=== PATIENT | male | born 1990 | race Caucasian/White ===

== ENCOUNTER 2018-08-29 15:05 | Inpatient (IN) | payer OTHER ==
[2018-08-29 19:02] VITALS: BMI 27.9
--- NOTE | 2018-08-29 22:03 | HP ---
"CIWA Score - Admission Criteria [facility]ASAS Guidelines: Admission for Medically Managed Detox: Requires at least one of the followin. CIWA greater than 12 2. Seizures within the past 24 hours 3. Delirium tremens within the past 24 hours 4. Hallucinations within the past 24 hours 5. Acute intervention needed for co occurring medical disorder 6. Acute intervention needed for co occurring psychiatric disorder 7. Severe withdrawal that cannot be handled at a lower level of care (continued vomiting, continued diarrhea, abnormal vital signs) requiring intravenous medication and/or fluids 8. Admission ROS S - HPI Chief Complaint: Here for rehab from alcohol. Allergies/Adverse Reactions: Allergies Allergy/AdvReac Type Severity Reaction Status Date / Time No Known Allergies Allergy Verified 08/29/18 18:52 History of Present Illness: 28 yo presents to [facility] for rehab. U-Tox + for OPI/MTD [facility] detox @ [facility] for alcohol and heroin and competed on 08/18/18. . [facility] [place] [facility] instructed to come into rehab. Heroin use disorder since age 19. Last use was 4 days ago. [facility] was started today at [facility]. Given Methadone 30 mg today. Alcohol use since age 13. Was 15-20 bottles 16 oz beers daily. [facility] last alcohol use was 4 days ago. Nicotine use began at age 12. Smokes 1PPD States last overdose 2 weeks ago. [facility] was given Narcan and taken to hospital. [facility] has Narcan at home. Denies blackouts or seizures. PMHx: Asthma (last exacerbation 6 mths ago) MHHx: Depression. Denies thoughts of harming self or others. MH meds while incarcerated. Left fpc July 15, 2018. [facility] has current prescription for MH meds but no current prescriber. Search Terms: Dev Galvez, 1990 Search Date: 08/29/2018 10:02:51 PM The Drug Utilization Report below displays all of the controlled substance prescriptions, if any, that your patient has filled in the last twelve months. The information displayed on this report is compiled from pharmacy submissions to the Department, and accurately reflects the information as submitted by the pharmacies. This report was requested by: Bessie Lowe | Reference #: [id number] There are no results for the search terms that you entered. Exam Limitations: No Limitations - Ebola screening Have you traveled outside of the country in the last 21 days: No Have you had contact with anyone from an Ebola affected area: No Have you been sick,other than usual withdrawal symptoms: No (Denies recent exposure to measles ) Do you have a fever: No - Review of Systems Constitutional: Changes in sleep (Problems falling asleep - takes Trazodone) EENT: reports: No Symptoms Reported Respiratory: reports: No Symptoms reported Cardiac: reports: No Symptoms Reported GI: reports: No Symptoms Reported : reports: No Symptoms Reported Musculoskeletal: reports: No Symptoms Reported Integumentary: reports: No Symptoms Reported Neuro: reports: No Symptoms reported Endocrine: reports: No Symptoms Reported Hematology: reports: No Symptoms Reported Psychiatric: reports: Judgement Intact, Orientated x3, Depressed ( Denies thoughts of harming self or others.) Patient History - PPD History Previous Implant?: Yes Documented Results: Negative w/o proof Implanted On Prior [facility] Admission?: No PPD to be Administered?: No - Smoking Cessation Smoking history: Current every day smoker Have you smoked in the past 12 months: Yes Aproximately how many cigarettes per day: 20 Hx Chewing Tobacco Use: No Initiated information on smoking cessation: Yes 'Breaking Loose' booklet given: 08/29/18 - Substance & Tx. History Hx Alcohol Use: Yes Hx Substance Use: Yes Substance Use Type: Alcohol, Heroin Hx Substance Use Treatment: Yes (detox, Currently on MMTP) - Substances abused Heroin Substance route: Injection Frequency: Daily Amount used: 20 bags Age of first use: 19 Date of last use: 08/25/18 Alcohol Substance route: Oral Frequency: Daily Amount used: 15 bottles Age of first use: 13 Date of last use: 08/25/18 Admission Physical Exam S - Vital Signs Vital Signs: Vital Signs - 24 hr 08/29/18 08/29/18 18:40 21:22 Temperature 98.3 F 98.3 F Pulse Rate 72 72 Respiratory 18 18 Rate Blood Pressure 129/74 129/74 - Physical General Appearance: Yes: Nourished, Tremorous (Mild tremors of hands) HEENTM: Yes: EOMI (Jerking movement of eyes upon lateral gaze), Hearing grossly Normal, Normocephalic, TAYE, Pharynx Normal Respiratory: Yes: Lungs Clear, Normal Breath Sounds, No Respiratory Distress Neck: Yes: No masses,lesions,Nodules, Supple Breast: Yes: Breast Exam Deferred Cardiology: Yes: Regular Rhythm, Regular Rate (HR: 66), S1, S2 Abdominal: Yes: Non Tender, Flat, Soft, Increased Bowel Sounds Genitourinary: Yes: Within Normal Limits Back: Yes: Within Normal Limits Musculoskeletal: Yes: full range of Motion, Gait Steady Extremities: Yes: Normal Capillary Refill, Tremors (Mild tremors of hands) Neurological: Yes: flask maker II-XII NML intact (Jerking movement of eyes upon lateral gaze), Fully Oriented, Alert, Motor Strength 5/5, Normal Response Integumentary: Yes: Normal Color, Dry, Warm, Track Scott (Track scott (R) arm area. No increased warmth or erythema.) Lymphatic: Yes: Within Normal Limits - Diagnostic (1) Alcohol use disorder, moderate, in early remission Current Visit: Yes Status: Acute (2) Methadone maintenance therapy patient Current Visit: Yes Status: Acute Comment: Started in [facility] 08/29/18 prior to presenting for rehab. (3) Nystagmus Current Visit: Yes Status: Acute (4) History of asthma Current Visit: Yes Status: Chronic (5) Nicotine dependence, uncomplicated Current Visit: Yes Status: Chronic Qualifiers: Nicotine product type: cigarettes Qualified Code(s): F17.210 - Nicotine dependence, cigarettes, uncomplicated Cleared for Admission [facility] - Detox or Rehab Claeared for Rehab Admission: Yes Breathalyzer - Breathalyzer Breathalyzer: 0 Urine Drug Screen - Test Device Lot number: [id number] Expiration date: 05/01/20 - Control Is test valid?: Yes - Results Drug screen NEGATIVE: No Urine drug screen results: MOP-Opiates, MTD-Methadone Inpatient Rehab Admission - Rehab Decision to Admit Inpatient rehab admission?: Yes - Initial Determination Are CD services needed?: Yes Free of communicable disease: Yes Not in need of hospitalization: Yes - Rehab Admission Criteria Previous failed treatment: Yes Poor recovery environment: Yes Comorbidities: Yes Lacks judgement: No Patient is meeting Inpatient Rehab admission criteria:: Yes"
[2018-08-29] MEDS ORDERED: P-EPHED 60MG/TRIPROLIDI 2.5MG TABLET PO PRN (22:26)
[2018-08-29] MEDS ORDERED: MAGNESIUM CITRATE 300 ML BOTTLE PO PRN (22:26)
[2018-08-29] MEDS ORDERED: guaiFENesin 200 MG/10 ML 10 ML UNIT-DOSE CUPS PO PRN (22:26)
[2018-08-29] MEDS ORDERED: MAGNESIUM HYDROX 2400MG/30ML ORAL SUSPENSION 30 ML CUP PO PRN (22:26)
[2018-08-29] MEDS ORDERED: ACETAMINOPHEN 325 MG TABLET (FP) PO PRN (22:26)
[2018-08-29] MEDS ORDERED: NICOTINE POLACRILEX 2 MG GUM BC PRN (22:26)
[2018-08-29] MEDS ORDERED: MENTHOL/PHENOL 1 EACH UD MM PRN (22:26)
[2018-08-29] MEDS ORDERED: LOPERAMIDE HCL 2 MG CAPSULE PO PRN (22:26)
[2018-08-29] MEDS ORDERED: ALBUTEROL SO4 0.083% IH SOL 2.5 MG/3 ML VIAL.NEB. NEB PRN (22:31)
[2018-08-29] MEDS ORDERED: traZODone HCL 100 MG TABLET (FP) PO ONE (23:00)
[2018-08-29] MEDS: hydrOXYzine PAMOATE 50 MG CAPSULE (FP) PO PRN (23:36)
[2018-08-29] MEDS: MELATONIN 5 MG TABLETS PO PRN (23:36)
[2018-08-30] MEDS: PRENATAL VITAMINS W/ FOLIC ACID TABLET (FP) PO SCH (10:09)
[2018-08-30] MEDS: hydrOXYzine PAMOATE 50 MG CAPSULE (FP) PO PRN ×2 (10:09→21:39)
[2018-08-30] MEDS: NICOTINE 21 MG/24 HOURS TOPICAL PATCH TD SCH (10:09)
[2018-08-30 10:19] LABS: BILIRUBIN,TOTAL 0.3 mg/dL (0.2-1); BLOOD UREA NITROGEN 13.8 mg/dL (7-18); CALCIUM 9.5 mg/dL (8.5-10.1); POTASSIUM 4.3 mmol/L (3.5-5.1)
[2018-08-30 10:25] LABS: HEMOGLOBIN 14.5 GM/dL (11.7-16.9); MCH 29.6 pg (25.7-33.7); MCHC 32.9 g/dl (32.0-35.9); MEAN CELL VOLUME 90.1 fl (80-96); MEAN PLT VOLUME 8.6 fl (7.5-11.1); RBC 4.88 M/mm3 (4.00-5.60); RDW 13.6 % (11.9-15.9)
[2018-08-30] MEDS: METHADONE HCL 10 MG TABLET PO SCH (10:32)
[2018-08-30 11:16] LABS: PLATELET COUNT 318 K/MM3 (134-434)
--- NOTE | 2018-08-30 14:15 | CONSULT ---
[facility] Psychiatric Consult - Data Date of interview: 08/30/18 Admission source: [facility] Identifying data: First admission to [facility] and direct admission to [address] for this 28 y/o male (referred by correctional probation officer) seeking rehabilitative care for preservation of sobriety (heroin, alcohol dependence) + management of co-morbid conditions : MDD, Anxiety Disorder and insomnia. Patient is single, a father of one, homeless, unemployed and supported occasionally by relatives. Mr Galvez was released from longterm on after serving a 2 1/2 years sentence (charges not disclosed). Just completed detoxification (08/18/18) at [facility]. Substance Abuse History: Discussed with the patient in this interview. Mr Galvez admits to using heroin and alcohol. Recent history of heroin overdose. Details in current [facility] report as follows : Smoking history: Current every day smoker. Have you smoked in the past 12 months: Yes. Aproximately how many cigarettes per day: 20. Hx Chewing Tobacco Use: No. Initiated information on smoking cessation: Yes. 'Breaking Loose' booklet given: 08/29/18. - Substance & Tx. History. Hx Alcohol Use: Yes. Hx Substance Use: Yes. Substance Use Type : Alcohol, Heroin. Hx Substance Use Treatment: Yes (detox, Currently on MMTP). - Substances abused. Heroin. Substance route: Injection. Frequency: Daily. Amount used: 20 bags. Age of first use: 19. Date of last use: . Alcohol. Substance route: Oral. Frequency: Daily. Amount used: 15 bottles. Age of first use: 13. Date of last use: 08/25/18 Medical History: Remarkable for bronchial asthma. Patient endorses good general health. Psychiatric History: Patient denies history of psychiatric hospitalizations. He , however, reports receiving psychiatric care during his recent incarceration. In intermediate, the patient has been diagnosed with MDD and Anxiety Disorder. Mr Galvez was treated on a regimen of wellbutrin 200 mg/daily + trazodone 200 mg/ hs. Currently on methadone maintenance (30 mg/day). No prior history of OPD care. Patient endorses history of one suicide attempt, 5 years ago, via self- mutilation (wrist-cutting). Physical/Sexual Abuse/Trauma History: History of incarceration. Additional Comment: Urine drug screen results: MOP-Opiates, MTD-Methadone. Noted. Mental Status Exam - Mental Status Exam Alert and Oriented to: Time, Place, Person Cognitive Function: Good Patient Appearance: Well Groomed (covered with tattoos : extremities, neck) Mood: Hopeful, Euthymic Affect: Appropriate, Normal Range Patient Behavior: Appropriate, Cooperative Speech Pattern: Clear (speaks limited german; more comfortable in pashto), Appropriate Voice Loudness: Normal Thought Process: Goal Oriented Thought Disorder: Not Present Hallucinations: Denies Suicidal Ideation: Denies Homicidal Ideation: Denies Insight/Judgement: Poor Sleep: Poorly, Difficulty falling asleep Appetite: Good Muscle strength/Tone: Normal Gait/Station: Normal Psychiatric Findings - Problem List ([place] 1, 2,3) (1) Opioid dependence on agonist therapy Current Visit: Yes Status: Chronic (2) Alcohol use disorder, moderate, in early remission Current Visit: Yes Status: Chronic (3) Nicotine dependence, uncomplicated Current Visit: Yes Status: Chronic Qualifiers: Nicotine product type: cigarettes Qualified Code(s): F17.210 - Nicotine dependence, cigarettes, uncomplicated (4) Substance induced mood disorder Current Visit: Yes Status: Chronic (5) History of depression Current Visit: Yes Status: Chronic (6) Insomnia Current Visit: Yes Status: Chronic - Initial Treatment Plan Initial Treatment Plan: Psychoeducation. Sleep hygiene. Support given. Motivational counseling for maintenance of abstinence. AA/NA meetings. Groups. Psychotherapy (individual, cognitive, supportive). Resumed : wellbutrin 150 mg po daily + seroquel 100 mg (patient's specific request). Patient declines to take trazodone. Side effects/benefits discussed in this session.Made aware of risk of seizures, metabolic syndrome, abnormal involuntary movements and sedation. Mr Galvez is agreeable to this plan of care. Verbal consent granted to MD. Friedman.
[2018-08-30] MEDS: THIAMINE HCL 100 MG TABLET (FP) PO SCH (21:38)
[2018-08-30] MEDS: MELATONIN 5 MG TABLETS PO PRN (21:39)
[2018-08-31] MEDS: METHADONE HCL 10 MG TABLET PO SCH (06:18)
[2018-08-31] MEDS: NICOTINE 21 MG/24 HOURS TOPICAL PATCH TD SCH (10:07)
[2018-08-31] MEDS: PRENATAL VITAMINS W/ FOLIC ACID TABLET (FP) PO SCH (10:07)
[2018-08-31] MEDS: hydrOXYzine PAMOATE 50 MG CAPSULE (FP) PO PRN ×2 (10:07→21:23)
[2018-08-31 10:24] LABS: URINE APPEARANCE CLEAR; URINE BILIRUBIN NEGATIVE (NEGATIVE); URINE COLOR YELLOW; URINE GLUCOSE (UA) NEGATIVE (NEGATIVE); URINE KETONE NEGATIVE (NEGATIVE); URINE LEUK ESTERASE NEGATIVE (NEGATIVE); URINE NITRITE NEGATIVE (NEGATIVE); URINE PROTEIN NEGATIVE (NEGATIVE); URINE UROBILINOGEN 0.2 mg/dL (0.2-1.0)
[2018-08-31] MEDS: THIAMINE HCL 100 MG TABLET (FP) PO SCH (21:23)
[2018-08-31] MEDS: MELATONIN 5 MG TABLETS PO PRN (21:24)
--- NOTE | 2018-09-01 00:09 | EKG ---
Test Reason : Blood Pressure : / mmHG Vent. Rate : 051 BPM Atrial Rate : 051 BPM P-R Int : 144 ms QRS Dur : 102 ms QT Int : 406 ms P-R-T Axes : 039 053 034 degrees QTc Int : 374 ms SINUS BRADYCARDIA EARLY REPOLARIZATION OTHERWISE NORMAL ECG NO PREVIOUS ECGS AVAILABLE Confirmed by MD Rk, Darío ([id number]) on 09/01/2018 12:08:58 AM Referred By: Carlos Cabrera Confirmed By:Darío Beckman MD
[2018-09-01] MEDS: METHADONE HCL 10 MG TABLET PO SCH (06:20)
[2018-09-01] MEDS: PRENATAL VITAMINS W/ FOLIC ACID TABLET (FP) PO SCH (10:23)
[2018-09-01] MEDS: NICOTINE 21 MG/24 HOURS TOPICAL PATCH TD SCH (10:23)
[2018-09-01] MEDS: hydrOXYzine PAMOATE 50 MG CAPSULE (FP) PO PRN (10:24)
--- NOTE | 2018-09-01 15:13 | PN ---
[facility] Progress Note Note: PT WAS ADMITTED ON 08/29/18 AND REPORTS HE IS MANDATED BY PAROLE. PT REPORTS HE WAS STARTED ON METHADONE 30 MG PO AT [facility] ON SAME DAY HE ARRIVED HERE(08/29/18) FOR REHAB. TODAY PT IS C/O DISCOMFORT AND WANTS TO BE INCREASED OTHERWISE WILL SIGN OUT TO GO TO HIS CLINIC FOR INCREASE DOSE. NURSE FELICIA SALDIVAR CALLED [facility] TO INFORM PT'S REQUEST( SEE NURSE'S NOTES). THIS CANCER SPEC ALSO SPOKE TO THE MEDICAL PROVIDER, DR. ALCALA WHO OF [facility] WHO AGREED THAT PATIENT CAN BE MAINTAINED AT 40 MG DAILY IF NECESSARY WHILE IN REHAB UNTIL HE COMES BACK TO THE CLINIC FOR FURTHER ASSESSMENT. PT IS ALERT O X 3. OOB AMBULATING WITH STEADY GAIT AND PARTICIPATING IN GROUP ACTIVITIES WITH PEERS. Vital Signs - 24 hr 09/01/18 09/01/18 09/01/18 00:30 03:30 06:52 Temperature 97.7 F Pulse Rate 57 L Respiratory 18 18 18 Rate Blood Pressure 123/71 CARDIAC:S1 S2 SINUS BRADYCARDIA EKG(08/29/18):SINUS BRADYCARDIA EARLY POLARIZATION OTHERWISE NORMAL ECG NO PREVIOUS EKG ON FILE HERE. REPEAT EKG TODAY(09/01/18) :NORMAL SINUS RHYTHM NORMAL ECG A:CRAVINGS/IRRITABILITY PLAN: PER PT'S REQUEST AND DISCUSSION WITH DR. ALCALA AT [facility], PT MAY BE MAINTAINED ON METHADONE 40 MG PO DAILY. PT WILL FOLLOW UP WITH [facility] AFTER REHAB TREATMENT.
[2018-09-01] MEDS: QUEtiapine FUMARATE 100 MG TABLET (FP) PO SCH (21:31)
[2018-09-01] MEDS: THIAMINE HCL 100 MG TABLET (FP) PO SCH (21:31)
[2018-09-02] MEDS: METHADONE HCL 40 MG DISPERSABLE TABLET PO SCH (06:05)
[2018-09-02] MEDS: PRENATAL VITAMINS W/ FOLIC ACID TABLET (FP) PO SCH (10:18)
[2018-09-02] MEDS: NICOTINE 21 MG/24 HOURS TOPICAL PATCH TD SCH (10:18)
--- NOTE | 2018-09-02 13:47 | EKG ---
Test Reason : Blood Pressure : / mmHG Vent. Rate : 060 BPM Atrial Rate : 060 BPM P-R Int : 146 ms QRS Dur : 106 ms QT Int : 390 ms P-R-T Axes : -09 062 020 degrees QTc Int : 390 ms NORMAL SINUS RHYTHM NORMAL ECG WHEN COMPARED WITH ECG OF 29-AUG-2018 22:47, NO SIGNIFICANT CHANGE WAS FOUND Confirmed by MD LIONEL, ABRIL ([id number]) on 09/02/2018 1:47:22 PM Referred By: Carlos Cabrera Confirmed By:ABRIL FLOWERS MD
[2018-09-02] MEDS: QUEtiapine FUMARATE 100 MG TABLET (FP) PO SCH (21:32)
[2018-09-02] MEDS: THIAMINE HCL 100 MG TABLET (FP) PO SCH (21:32)
[2018-09-03] MEDS: METHADONE HCL 40 MG DISPERSABLE TABLET PO SCH (06:04)
[2018-09-03] MEDS: PRENATAL VITAMINS W/ FOLIC ACID TABLET (FP) PO SCH (10:09)
[2018-09-03] MEDS: NICOTINE 21 MG/24 HOURS TOPICAL PATCH TD SCH (10:09)
[2018-09-03] MEDS: MAG HYDROX/AL HYDROX/SIMETH 30 ML UNIT-DOSE CUP PO PRN (18:45)
[2018-09-03] MEDS: QUEtiapine FUMARATE 100 MG TABLET (FP) PO SCH (21:22)
[2018-09-03] MEDS: THIAMINE HCL 100 MG TABLET (FP) PO SCH (21:22)
[2018-09-04] MEDS: MAG HYDROX/AL HYDROX/SIMETH 30 ML UNIT-DOSE CUP PO PRN (05:36)
[2018-09-04] MEDS: METHADONE HCL 40 MG DISPERSABLE TABLET PO SCH (06:06)
[2018-09-04] MEDS: PRENATAL VITAMINS W/ FOLIC ACID TABLET (FP) PO SCH (09:59)
[2018-09-04] MEDS: NICOTINE 21 MG/24 HOURS TOPICAL PATCH TD SCH (10:00)
[2018-09-04] MEDS: THIAMINE HCL 100 MG TABLET (FP) PO SCH (21:12)
[2018-09-04] MEDS: QUEtiapine FUMARATE 100 MG TABLET (FP) PO SCH (21:12)
[2018-09-05] MEDS: METHADONE HCL 40 MG DISPERSABLE TABLET PO SCH (06:05)
[2018-09-05] MEDS ORDERED: HYDROCORTISONE 1% TOPICAL OINT 30 GM TUBE TP PRN (08:57)
--- NOTE | 2018-09-05 09:00 | PN ---
S Progress Note Note: Vital Signs Temperature 98.9 F 09/05/18 06:56 Pulse Rate 73 09/05/18 06:56 Respiratory Rate 18 09/05/18 06:56 Blood Pressure 126/68 09/05/18 06:56 O2 Sat by Pulse Oximetry (%) c/o of itch and rash on right hand Aox3 no distress skin intact, + right hand erythema pruritus TP hydrocortisone PRN BID continue to monitor
[2018-09-05] MEDS: PRENATAL VITAMINS W/ FOLIC ACID TABLET (FP) PO SCH (10:22)
[2018-09-05] MEDS: NICOTINE 21 MG/24 HOURS TOPICAL PATCH TD SCH (10:22)
[2018-09-05] MEDS: THIAMINE HCL 100 MG TABLET (FP) PO SCH (21:19)
[2018-09-05] MEDS: QUEtiapine FUMARATE 100 MG TABLET (FP) PO SCH (21:19)
[2018-09-06] MEDS: METHADONE HCL 40 MG DISPERSABLE TABLET PO SCH (06:08)
[2018-09-06] MEDS: PRENATAL VITAMINS W/ FOLIC ACID TABLET (FP) PO SCH (09:42)
[2018-09-06] MEDS: NICOTINE 21 MG/24 HOURS TOPICAL PATCH TD SCH (09:42)
[2018-09-06] MEDS: QUEtiapine FUMARATE 100 MG TABLET (FP) PO SCH (21:36)
[2018-09-06] MEDS: MELATONIN 5 MG TABLETS PO PRN (21:36)
[2018-09-06] MEDS: THIAMINE HCL 100 MG TABLET (FP) PO SCH (21:36)
[2018-09-07] MEDS: METHADONE HCL 40 MG DISPERSABLE TABLET PO SCH (06:06)
[2018-09-07] MEDS: PRENATAL VITAMINS W/ FOLIC ACID TABLET (FP) PO SCH (09:56)
[2018-09-07] MEDS: NICOTINE 21 MG/24 HOURS TOPICAL PATCH TD SCH (09:56)
[2018-09-07] MEDS: METHOCARBAMOL 500 MG TABLET PO PRN (09:58)
[2018-09-07] MEDS: IBUPROFEN 400 MG TABLET (FP) PO PRN (19:47)
[2018-09-07] MEDS: THIAMINE HCL 100 MG TABLET (FP) PO SCH (21:29)
[2018-09-07] MEDS: QUEtiapine FUMARATE 100 MG TABLET (FP) PO SCH (21:29)
[2018-09-07] MEDS: MELATONIN 5 MG TABLETS PO PRN (21:30)
[2018-09-08] MEDS: METHADONE HCL 40 MG DISPERSABLE TABLET PO SCH (06:12)
--- NOTE | 2018-09-08 09:51 | PN ---
S Progress Note (SOAP) Subjective: Pt c/o pain,swelling and redness to left lower eyelid x 2 days and pus forcefully popped out early this morning. Objective: 09/08/18 09:42 Vital Signs 09/08/18 07:06 Temperature 97.6 F Pulse Rate 65 Respiratory 18 Rate Blood Pressure 139/93 Left eye: redness and swelling to lower eyelid, slight pus seen. point of pus exit noted at inner eyelid. Assessment: 09/08/18 09:45 Abscess left eye periorbital cellulitis, left eye Plan: warm compress to left eye tid Doxycycline 500 mg po bid Bacitracin ophth ointment apply to left lower eyelid bid x 7 days. D/w pt: Avoid touching eyes but if you do, wash hands after touching eyes.
[2018-09-08] MEDS ORDERED: BACITRACIN 15 GM TUBE TOPICAL OINTMENT TP SCH (10:00)
[2018-09-08] MEDS: PRENATAL VITAMINS W/ FOLIC ACID TABLET (FP) PO SCH (10:35)
[2018-09-08] MEDS: hydrOXYzine PAMOATE 50 MG CAPSULE (FP) PO PRN (10:36)
[2018-09-08] MEDS: DOXYCYCLINE HYCLATE 100 MG TABLET PO SCH ×2 (10:37→17:58)
[2018-09-08] MEDS: NICOTINE 21 MG/24 HOURS TOPICAL PATCH TD SCH (10:37)
[2018-09-08] MEDS: BACITRACIN 3.5 GM OPTHALMIC OINT TUBE OS SCH ×2 (14:23→21:30)
[2018-09-08] MEDS: QUEtiapine FUMARATE 100 MG TABLET (FP) PO SCH (21:29)
[2018-09-08] MEDS: THIAMINE HCL 100 MG TABLET (FP) PO SCH (21:29)
[2018-09-09] MEDS: METHADONE HCL 40 MG DISPERSABLE TABLET PO SCH (06:06)
[2018-09-09] MEDS: hydrOXYzine PAMOATE 50 MG CAPSULE (FP) PO PRN ×2 (09:30→21:07)
[2018-09-09] MEDS: DOXYCYCLINE HYCLATE 100 MG TABLET PO SCH ×2 (09:30→17:48)
[2018-09-09] MEDS: NICOTINE 21 MG/24 HOURS TOPICAL PATCH TD SCH (09:30)
[2018-09-09] MEDS: PRENATAL VITAMINS W/ FOLIC ACID TABLET (FP) PO SCH (09:30)
[2018-09-09] MEDS: BACITRACIN 3.5 GM OPTHALMIC OINT TUBE OS SCH ×2 (09:31→21:07)
[2018-09-09] MEDS: THIAMINE HCL 100 MG TABLET (FP) PO SCH (21:06)
[2018-09-09] MEDS: QUEtiapine FUMARATE 100 MG TABLET (FP) PO SCH (21:07)
[2018-09-09] MEDS: MELATONIN 5 MG TABLETS PO PRN (21:07)
[2018-09-10] MEDS: METHADONE HCL 40 MG DISPERSABLE TABLET PO SCH (06:06)
[2018-09-10] MEDS: PRENATAL VITAMINS W/ FOLIC ACID TABLET (FP) PO SCH (10:18)
[2018-09-10] MEDS: hydrOXYzine PAMOATE 50 MG CAPSULE (FP) PO PRN ×2 (10:18→21:31)
[2018-09-10] MEDS: DOXYCYCLINE HYCLATE 100 MG TABLET PO SCH ×2 (10:18→17:00)
[2018-09-10] MEDS: BACITRACIN 3.5 GM OPTHALMIC OINT TUBE OS SCH ×2 (10:19→22:00)
[2018-09-10] MEDS: NICOTINE 21 MG/24 HOURS TOPICAL PATCH TD SCH (10:19)
--- NOTE | 2018-09-10 12:35 | PN ---
[facility] Progress Note Note: CXR result seen(see radiology report). Impression:No acute pathology.possible small granulomata on the left. correlation recommended. Plan:Copies of report and lab in patients discharge package to follow up with his primary care for further evaluation, if needed. Addendum;Left eye periorbital abscess is almost completely resolved.
[2018-09-10] MEDS: MELATONIN 5 MG TABLETS PO PRN (21:30)
[2018-09-10] MEDS: QUEtiapine FUMARATE 100 MG TABLET (FP) PO SCH (21:31)
[2018-09-10] MEDS: THIAMINE HCL 100 MG TABLET (FP) PO SCH (21:31)
[2018-09-11] MEDS: METHADONE HCL 40 MG DISPERSABLE TABLET PO SCH (06:12)
[2018-09-11] MEDS: NICOTINE 21 MG/24 HOURS TOPICAL PATCH TD SCH (10:25)
[2018-09-11] MEDS: PRENATAL VITAMINS W/ FOLIC ACID TABLET (FP) PO SCH (10:25)
[2018-09-11] MEDS: DOXYCYCLINE HYCLATE 100 MG TABLET PO SCH ×2 (10:25→18:11)
[2018-09-11] MEDS: BACITRACIN 3.5 GM OPTHALMIC OINT TUBE OS SCH ×2 (10:26→21:31)
[2018-09-11] MEDS: hydrOXYzine PAMOATE 50 MG CAPSULE (FP) PO PRN (10:26)
--- NOTE | 2018-09-11 15:11 | PN ---
Psychiatric Progress Note Vital Signs: Vital Signs Period Temp Pulse Resp BP Sys/Mary Pulse Ox Last 24 Hr 97.8 F 70 18 128/85 Date of Session: 09/11/18 Chief Complaint:: " i have never had a suicide attempt." HPI: Patient admitted to alcohol and cocaine dependence. ROS: Patient is coherent, alert and oriented X3. Current Medications: Active Medications Generic Name Dose Route Start Last Admin Trade Name Freq PRN Reason Stop Dose Admin Acetaminophen 650 mg 08/29/18 22:26 Tylenol - PO Q4H PRN FEVER Al Hydroxide/Mg Hydroxide 30 ml 08/29/18 22:26 09/04/18 05:36 Mylanta Oral Suspension - PO 30 ml Q6H PRN Administration DYSPEPSIA Albuterol Sulfate 1 amp 08/29/18 22:31 Ventolin 0.083% Nebulizer Soln - NEB Q4H PRN SHORT OF BREATH/WHEEZING Bacitracin 1 applic 09/08/18 11:00 09/11/18 10:26 Bacitracin Ophthalmic Oint - OS Not Given BID KIRSTIN Bupropion HCl 150 mg 09/01/18 14:00 09/11/18 10:25 Wellbutrin Xl - PO 150 mg DAILY KIRSTIN Administration Doxycycline Hyclate 100 mg 09/08/18 10:00 09/11/18 10:25 Vibratab - PO 09/15/18 09:59 100 mg BID@1000,1800 KIRSTIN Administration Eucalyptus/Menthol/Phenol/Sorbitol 1 each 08/29/18 22:26 Cepastat Lozenge - MM Q4H PRN SORE THROAT Guaifenesin 10 ml 08/29/18 22:26 Robitussin - PO Q6H PRN COUGH Hydrocortisone 1 applic 09/05/18 08:57 09/05/18 10:22 Hytone 1% Ointment - TP 1 applic BID PRN Administration FOR ITCHING Hydroxyzine Pamoate 50 mg 08/29/18 22:26 09/11/18 10:26 Vistaril - PO 50 mg Q4H PRN Administration AGITATION Ibuprofen 400 mg 08/29/18 22:26 09/07/18 19:47 Motrin - PO 400 mg Q6H PRN Administration Pain level 4-6 Loperamide HCl 4 mg 08/29/18 22:26 Imodium - PO Q6H PRN DIARRHEA Magnesium Citrate 300 ml 08/29/18 22:26 Citroma - PO Q48H PRN CONSTIPATION Magnesium Hydroxide 30 ml 08/29/18 22:26 Milk Of Magnesia - PO DAILY PRN CONSTIPATION Melatonin 5 mg 08/29/18 22:00 09/10/18 21:30 Melatonin PO 5 mg HS PRN Administration INSOMNIA Methadone HCl 40 mg 09/08/18 06:00 09/11/18 06:12 Dolophine - PO 09/15/18 05:59 40 mg DAILY@0600 KIRSTIN Administration Methocarbamol 500 mg 09/01/18 12:44 09/07/18 09:58 Robaxin - PO 500 mg TID PRN Administration MUSCLE SPASMS Nicotine 21 mg 08/30/18 10:00 09/11/18 10:25 Nicoderm Patch - TD 21 mg DAILY KIRSTIN Administration Nicotine Polacrilex 2 mg 08/29/18 22:26 Nicorette Gum - BC Q2H PRN NICOTINE REPLACEMENT RX Multivit/Folic Acid/Iron 1 tab 08/30/18 10:00 09/11/18 10:25 Vitamins ([facility]) - PO 1 tab DAILY KIRSTIN Administration Pseudoephedrine/Triprolidine 1 combo 08/29/18 22:26 Actifed - PO TID PRN NASAL CONGESTION Quetiapine Fumarate 100 mg 09/01/18 22:00 09/10/18 21:31 Seroquel - PO 100 mg HS KIRSTIN Administration Thiamine HCl 100 mg 08/30/18 22:00 09/10/18 21:31 Vitamin B1 - PO 100 mg HS KIRSTIN Administration Medication(s) Change(s): No. Current Side Effect: No Lab tests ordered: No Lab tests reviewed: Yes Provider note:: Supervisor Fur Floor Worker seen today as a follow up to his initial psychiatric consultation. Dr. Nicole note read and appreciated. Patient denies h/o psychiatric hospitalizations, outpatient care, and suicide attempt. He received psychiatric care while incarcerated and reports taking wellbutrin 200mg daily + Trazodone 150mg Hs. Patient denies h/o suicide attempt. He was made aware that the inpatient rehab he was going to be transferred to will not accept him because of his history of suicide attempt. As per Dr. Nicole's note, patient reported h/o one suicide attempt five years ago by cutting self. Patient denies the suicide attempt to real estate underwriter. States there was a language barrier as the psychiatrist was speaking thai to him and his thai is limited. Mr. Galvez is mainly pashto speaking. He reports saying yes to most of the questions because he wanted to end the conversation. Nursing staff informed. At present he reports stable mood and reports motivation to continue treatment at an inpatient it help desk technician rehab facility. Total face to face time:: 25 Mental Status Exam - Mental Status Exam Alert and Oriented to: Time, Place, Person Cognitive Function: Good Patient Appearance: Well Groomed Mood: Euthymic Affect: Appropriate Patient Behavior: Cooperative Speech Pattern: Appropriate Voice Loudness: Normal Thought Process: Goal Oriented Thought Disorder: Not Present Hallucinations: Denies Suicidal Ideation: Denies Homicidal Ideation: Denies Insight/Judgement: Poor Sleep: Fair Appetite: Fair Muscle strength/Tone: Normal Gait/Station: Normal Psychiatric Treatment Plan - Problem List (1) Alcohol use disorder, moderate, in early remission Current Visit: Yes (2) History of depression Current Visit: Yes (3) Insomnia Current Visit: Yes (4) Nicotine dependence, uncomplicated Current Visit: Yes Qualifiers: Nicotine product type: cigarettes Qualified Code(s): F17.210 - Nicotine dependence, cigarettes, uncomplicated (5) Opioid dependence on agonist therapy Current Visit: Yes
[2018-09-11] MEDS: QUEtiapine FUMARATE 100 MG TABLET (FP) PO SCH (21:30)
[2018-09-11] MEDS: THIAMINE HCL 100 MG TABLET (FP) PO SCH (21:30)
[2018-09-12] MEDS: METHADONE HCL 40 MG DISPERSABLE TABLET PO SCH (06:18)
[2018-09-12] MEDS: NICOTINE 21 MG/24 HOURS TOPICAL PATCH TD SCH (10:16)
[2018-09-12] MEDS: DOXYCYCLINE HYCLATE 100 MG TABLET PO SCH ×2 (10:16→17:25)
[2018-09-12] MEDS: hydrOXYzine PAMOATE 50 MG CAPSULE (FP) PO PRN (10:16)
[2018-09-12] MEDS: PRENATAL VITAMINS W/ FOLIC ACID TABLET (FP) PO SCH (10:16)
[2018-09-12] MEDS: BACITRACIN 3.5 GM OPTHALMIC OINT TUBE OS SCH ×2 (11:00→21:34)
[2018-09-12] MEDS: THIAMINE HCL 100 MG TABLET (FP) PO SCH (21:35)
[2018-09-12] MEDS: QUEtiapine FUMARATE 100 MG TABLET (FP) PO SCH (21:35)
[2018-09-13] MEDS: METHADONE HCL 40 MG DISPERSABLE TABLET PO SCH (06:04)
[2018-09-13] MEDS: PRENATAL VITAMINS W/ FOLIC ACID TABLET (FP) PO SCH (10:14)
[2018-09-13] MEDS: hydrOXYzine PAMOATE 50 MG CAPSULE (FP) PO PRN (10:14)
[2018-09-13] MEDS: BACITRACIN 3.5 GM OPTHALMIC OINT TUBE OS SCH ×2 (10:14→23:24)
[2018-09-13] MEDS: DOXYCYCLINE HYCLATE 100 MG TABLET PO SCH ×2 (10:14→17:46)
[2018-09-13] MEDS: NICOTINE 21 MG/24 HOURS TOPICAL PATCH TD SCH (10:15)
[2018-09-13] MEDS: QUEtiapine FUMARATE 100 MG TABLET (FP) PO SCH (21:55)
[2018-09-13] MEDS: THIAMINE HCL 100 MG TABLET (FP) PO SCH (21:55)
[2018-09-14] MEDS: METHADONE HCL 40 MG DISPERSABLE TABLET PO SCH (06:00)
[2018-09-14] MEDS: PRENATAL VITAMINS W/ FOLIC ACID TABLET (FP) PO SCH (10:28)
[2018-09-14] MEDS: BACITRACIN 3.5 GM OPTHALMIC OINT TUBE OS SCH ×2 (10:28→21:59)
[2018-09-14] MEDS: DOXYCYCLINE HYCLATE 100 MG TABLET PO SCH ×2 (10:29→18:35)
[2018-09-14] MEDS: NICOTINE 21 MG/24 HOURS TOPICAL PATCH TD SCH (10:31)
[2018-09-14] MEDS: MELATONIN 5 MG TABLETS PO PRN (21:35)
[2018-09-14] MEDS: QUEtiapine FUMARATE 100 MG TABLET (FP) PO SCH (21:35)
[2018-09-14] MEDS: THIAMINE HCL 100 MG TABLET (FP) PO SCH (21:59)
[2018-09-15] MEDS: METHADONE HCL 40 MG DISPERSABLE TABLET PO SCH (06:02)
[2018-09-15] MEDS: NICOTINE 21 MG/24 HOURS TOPICAL PATCH TD SCH (10:12)
[2018-09-15] MEDS: PRENATAL VITAMINS W/ FOLIC ACID TABLET (FP) PO SCH (10:12)
[2018-09-15] MEDS: BACITRACIN 3.5 GM OPTHALMIC OINT TUBE OS SCH ×2 (10:13→21:31)
[2018-09-15] MEDS: hydrOXYzine PAMOATE 50 MG CAPSULE (FP) PO PRN (10:15)
[2018-09-15] MEDS: THIAMINE HCL 100 MG TABLET (FP) PO SCH (21:31)
[2018-09-15] MEDS: QUEtiapine FUMARATE 100 MG TABLET (FP) PO SCH (21:31)
[2018-09-16] MEDS: METHADONE HCL 40 MG DISPERSABLE TABLET PO SCH (06:01)
[2018-09-16] MEDS: hydrOXYzine PAMOATE 50 MG CAPSULE (FP) PO PRN (10:04)
[2018-09-16] MEDS: NICOTINE 21 MG/24 HOURS TOPICAL PATCH TD SCH (10:04)
[2018-09-16] MEDS: PRENATAL VITAMINS W/ FOLIC ACID TABLET (FP) PO SCH (10:04)
[2018-09-16] MEDS: BACITRACIN 3.5 GM OPTHALMIC OINT TUBE OS SCH ×2 (10:05→21:35)
[2018-09-16] MEDS: QUEtiapine FUMARATE 100 MG TABLET (FP) PO SCH (21:34)
[2018-09-16] MEDS: THIAMINE HCL 100 MG TABLET (FP) PO SCH (21:34)
[2018-09-17] MEDS: METHADONE HCL 40 MG DISPERSABLE TABLET PO SCH (07:05)
[2018-09-17] MEDS: NICOTINE 21 MG/24 HOURS TOPICAL PATCH TD SCH (10:28)
[2018-09-17] MEDS: PRENATAL VITAMINS W/ FOLIC ACID TABLET (FP) PO SCH (10:28)
[2018-09-17] MEDS: BACITRACIN 3.5 GM OPTHALMIC OINT TUBE OS SCH ×2 (10:28→21:30)
[2018-09-17] MEDS: hydrOXYzine PAMOATE 50 MG CAPSULE (FP) PO PRN ×2 (10:28→21:30)
[2018-09-17] MEDS: QUEtiapine FUMARATE 100 MG TABLET (FP) PO SCH (21:30)
[2018-09-17] MEDS: THIAMINE HCL 100 MG TABLET (FP) PO SCH (21:30)
[2018-09-18] MEDS: METHADONE HCL 40 MG DISPERSABLE TABLET PO SCH (06:11)
[2018-09-18] MEDS: PRENATAL VITAMINS W/ FOLIC ACID TABLET (FP) PO SCH (10:28)
[2018-09-18] MEDS: NICOTINE 21 MG/24 HOURS TOPICAL PATCH TD SCH (10:29)
[2018-09-18] MEDS: hydrOXYzine PAMOATE 50 MG CAPSULE (FP) PO PRN ×2 (10:29→21:46)
[2018-09-18] MEDS: BACITRACIN 3.5 GM OPTHALMIC OINT TUBE OS SCH (10:29)
[2018-09-18] MEDS: THIAMINE HCL 100 MG TABLET (FP) PO SCH (21:46)
[2018-09-18] MEDS: QUEtiapine FUMARATE 100 MG TABLET (FP) PO SCH (21:46)
[2018-09-19] MEDS: METHADONE HCL 40 MG DISPERSABLE TABLET PO SCH (06:02)
[2018-09-19] MEDS: PRENATAL VITAMINS W/ FOLIC ACID TABLET (FP) PO SCH (10:29)
[2018-09-19] MEDS: NICOTINE 21 MG/24 HOURS TOPICAL PATCH TD SCH (10:29)
[2018-09-19] MEDS: hydrOXYzine PAMOATE 50 MG CAPSULE (FP) PO PRN ×2 (10:30→21:30)
[2018-09-19] MEDS: QUEtiapine FUMARATE 100 MG TABLET (FP) PO SCH (21:30)
[2018-09-19] MEDS: MELATONIN 5 MG TABLETS PO PRN (21:30)
[2018-09-19] MEDS: THIAMINE HCL 100 MG TABLET (FP) PO SCH (21:31)
[2018-09-20] MEDS: METHADONE HCL 40 MG DISPERSABLE TABLET PO SCH (06:14)
[2018-09-20] MEDS: PRENATAL VITAMINS W/ FOLIC ACID TABLET (FP) PO SCH (09:44)
[2018-09-20] MEDS: hydrOXYzine PAMOATE 50 MG CAPSULE (FP) PO PRN ×2 (09:45→21:30)
[2018-09-20] MEDS: NICOTINE 21 MG/24 HOURS TOPICAL PATCH TD SCH (09:45)
[2018-09-20] MEDS: THIAMINE HCL 100 MG TABLET (FP) PO SCH (21:30)
[2018-09-20] MEDS: MELATONIN 5 MG TABLETS PO PRN (21:30)
[2018-09-20] MEDS: QUEtiapine FUMARATE 100 MG TABLET (FP) PO SCH (21:30)
[2018-09-21] MEDS: METHADONE HCL 40 MG DISPERSABLE TABLET PO SCH (06:24)
[2018-09-21] MEDS: NICOTINE 21 MG/24 HOURS TOPICAL PATCH TD SCH (10:06)
[2018-09-21] MEDS: PRENATAL VITAMINS W/ FOLIC ACID TABLET (FP) PO SCH (10:07)
[2018-09-21] MEDS: hydrOXYzine PAMOATE 50 MG CAPSULE (FP) PO PRN ×2 (10:08→21:26)
[2018-09-21] MEDS: QUEtiapine FUMARATE 100 MG TABLET (FP) PO SCH (21:26)
[2018-09-21] MEDS: THIAMINE HCL 100 MG TABLET (FP) PO SCH (21:26)
[2018-09-21] MEDS: MELATONIN 5 MG TABLETS PO PRN (21:26)
[2018-09-22] MEDS: METHADONE HCL 40 MG DISPERSABLE TABLET PO SCH (06:04)
[2018-09-22] MEDS: PRENATAL VITAMINS W/ FOLIC ACID TABLET (FP) PO SCH (09:58)
[2018-09-22] MEDS: hydrOXYzine PAMOATE 50 MG CAPSULE (FP) PO PRN (09:58)
[2018-09-22] MEDS: IBUPROFEN 400 MG TABLET (FP) PO PRN (09:59)
[2018-09-22] MEDS: NICOTINE 21 MG/24 HOURS TOPICAL PATCH TD SCH (10:00)
--- NOTE | 2018-09-22 11:49 | PN ---
[facility] Progress Note (SOAP) Subjective: PT C/O LEFT SHOULDER BLADE AREA PAIN ON MOVEMENT OR DEEP BREATHING. Objective: 09/22/18 11:43 Vital Signs 09/22/18 07:15 Temperature 97.8 F Pulse Rate 80 Respiratory 18 Rate Blood Pressure 141/82 Laboratory Tests 08/30/18 08/30/18 08/30/18 07:50 07:50 07:50 WBC 8.0 RBC 4.88 Hgb 14.5 Hct 44.0 MCV 90.1 MCH 29.6 MCHC 32.9 RDW 13.6 Plt Count 318 MPV 8.6 Sodium 138 Potassium 4.3 Chloride 102 Carbon Dioxide 30 Anion Gap 6 L BUN 13.8 Creatinine 1.0 Est GFR (CKD-EPI)AfAm 118.19 Est GFR (CKD-EPI)NonAf 101.97 Random Glucose 94 Calcium 9.5 Total Bilirubin 0.3 AST 15 ALT 28 Alkaline Phosphatase 71 Total Protein 8.0 Albumin 4.0 Urine Color Urine Appearance Urine pH Ur Specific [place] Urine Protein Urine Glucose (UA) Urine Ketones Urine Blood Urine Nitrite Urine Bilirubin Urine Urobilinogen Ur Leukocyte Esterase RPR Titer Nonreactive TB (QFT) Incubation TB Test (QFT) Nil TB Test (QFT) Mitogen TB Test (QFT) Antigen TB Test (QFT) TB Positive Criteria 08/30/18 08/31/18 07:50 08:00 WBC RBC Hgb Hct MCV MCH MCHC RDW Plt Count MPV Sodium Potassium Chloride Carbon Dioxide Anion Gap BUN Creatinine Est GFR (CKD-EPI)AfAm Est GFR (CKD-EPI)NonAf Random Glucose Calcium Total Bilirubin AST ALT Alkaline Phosphatase Total Protein Albumin Urine Color Yellow Urine Appearance Clear Urine pH 6.0 Ur Specific [place] 1.021 Urine Protein Negative Urine Glucose (UA) Negative Urine Ketones Negative Urine Blood Negative Urine Nitrite Negative Urine Bilirubin Negative Urine Urobilinogen 0.2 Ur Leukocyte Esterase Negative RPR Titer TB (QFT) Incubation TB Test (QFT) Nil 0.06 TB Test (QFT) Mitogen >10.00 TB Test (QFT) Antigen 2.39 TB Test (QFT) Positive H TB Positive Criteria CARDIAC:S1 S2, NO MM LUNGS:CTA,OMER ABDOMEN:SOFT, +BS; NT,ND BACK:POINT TENDERNESS UNDER SHOULDER BLADE; ALL OTHER AREAS WITH NO PAIN EXPRESSION ON EXAM. EXTREMITIES:NO E/C/C; LEFT INNER ANKLE TENDERNESS ON PALPATION. Assessment: 09/22/18 11:47 MUSCLE STRAIN Plan: ROBAXIN 500 MG PO TID PRN MOTRIN 400 MG PO Q6H PRN INCREASE PO FLUIDS.
[2018-09-22] MEDS: QUEtiapine FUMARATE 100 MG TABLET (FP) PO SCH (21:33)
[2018-09-22] MEDS: THIAMINE HCL 100 MG TABLET (FP) PO SCH (21:33)
[2018-09-22] MEDS: MELATONIN 5 MG TABLETS PO PRN (21:33)
[2018-09-23] MEDS: METHADONE HCL 40 MG DISPERSABLE TABLET PO SCH (06:31)
[2018-09-23] MEDS: NICOTINE 21 MG/24 HOURS TOPICAL PATCH TD SCH (10:26)
[2018-09-23] MEDS: hydrOXYzine PAMOATE 50 MG CAPSULE (FP) PO PRN (10:26)
[2018-09-23] MEDS: PRENATAL VITAMINS W/ FOLIC ACID TABLET (FP) PO SCH (10:26)
[2018-09-23] MEDS: IBUPROFEN 400 MG TABLET (FP) PO PRN (10:26)
[2018-09-23] MEDS: METHOCARBAMOL 500 MG TABLET PO PRN ×2 (10:28→21:39)
[2018-09-23] MEDS: QUEtiapine FUMARATE 100 MG TABLET (FP) PO SCH (21:35)
[2018-09-23] MEDS: THIAMINE HCL 100 MG TABLET (FP) PO SCH (21:35)
[2018-09-23] MEDS: MELATONIN 5 MG TABLETS PO PRN (21:36)
[2018-09-24] MEDS: METHADONE HCL 40 MG DISPERSABLE TABLET PO SCH (06:17)
[2018-09-24] MEDS: IBUPROFEN 400 MG TABLET (FP) PO PRN (10:14)
[2018-09-24] MEDS: hydrOXYzine PAMOATE 50 MG CAPSULE (FP) PO PRN ×2 (10:14→21:27)
[2018-09-24] MEDS: PRENATAL VITAMINS W/ FOLIC ACID TABLET (FP) PO SCH (10:15)
[2018-09-24] MEDS: NICOTINE 21 MG/24 HOURS TOPICAL PATCH TD SCH (10:15)
[2018-09-24] MEDS: METHOCARBAMOL 500 MG TABLET PO PRN (10:16)
[2018-09-24] MEDS: THIAMINE HCL 100 MG TABLET (FP) PO SCH (21:27)
[2018-09-24] MEDS: QUEtiapine FUMARATE 100 MG TABLET (FP) PO SCH (21:27)
[2018-09-24] MEDS: MELATONIN 5 MG TABLETS PO PRN (21:27)
[2018-09-25] MEDS: METHADONE HCL 40 MG DISPERSABLE TABLET PO SCH (06:12)
--- NOTE | 2018-09-25 10:23 | PN ---
[facility] Progress Note (SOAP) Subjective: PT ADMITTED ON 08/29/18 TO REHAB AND SCHEDULED TO DISCHARGE ON 09/26/18. PT ATTENDED/PARTICIPATED IN GROUPS/INDIVIDUAL ACTIVITIES WHILE IN REHAB. PT MET WITH HIS COUNSELOR, MS SANDRA MCCONNELL AND HAS BEEN REFERRED TO [facility] ON [address] [place] FOR CD AFTERCARE. PT HAS BEEN REMINDED TO FOLLOW UP AT [facility] DISCUSSED WITH HIS METHADONE PROVIDER, DR. TOUSSAINT ON 09/01/18. PT DENBRENDA S/H/I. Objective: 09/25/18 10:21 Vital Signs 09/25/18 09/25/18 03:30 07:03 Temperature 97.9 F Pulse Rate 85 Respiratory 18 18 Rate Blood Pressure 143/83 Laboratory Tests 08/30/18 08/30/18 08/30/18 07:50 07:50 07:50 WBC 8.0 RBC 4.88 Hgb 14.5 Hct 44.0 MCV 90.1 MCH 29.6 MCHC 32.9 RDW 13.6 Plt Count 318 MPV 8.6 Sodium 138 Potassium 4.3 Chloride 102 Carbon Dioxide 30 Anion Gap 6 L BUN 13.8 Creatinine 1.0 Est GFR (CKD-EPI)AfAm 118.19 Est GFR (CKD-EPI)NonAf 101.97 Random Glucose 94 Calcium 9.5 Total Bilirubin 0.3 AST 15 ALT 28 Alkaline Phosphatase 71 Total Protein 8.0 Albumin 4.0 Urine Color Urine Appearance Urine pH Ur Specific Dorena Urine Protein Urine Glucose (UA) Urine Ketones Urine Blood Urine Nitrite Urine Bilirubin Urine Urobilinogen Ur Leukocyte Esterase RPR Titer Nonreactive TB (QFT) Incubation TB Test (QFT) Nil TB Test (QFT) Mitogen TB Test (QFT) Antigen TB Test (QFT) TB Positive Criteria 08/30/18 08/31/18 07:50 08:00 WBC RBC Hgb Hct MCV MCH MCHC RDW Plt Count MPV Sodium Potassium Chloride Carbon Dioxide Anion Gap BUN Creatinine Est GFR (CKD-EPI)AfAm Est GFR (CKD-EPI)NonAf Random Glucose Calcium Total Bilirubin AST ALT Alkaline Phosphatase Total Protein Albumin Urine Color Yellow Urine Appearance Clear Urine pH 6.0 Ur Specific Dorena 1.021 Urine Protein Negative Urine Glucose (UA) Negative Urine Ketones Negative Urine Blood Negative Urine Nitrite Negative Urine Bilirubin Negative Urine Urobilinogen 0.2 Ur Leukocyte Esterase Negative RPR Titer TB (QFT) Incubation TB Test (QFT) Nil 0.06 TB Test (QFT) Mitogen >10.00 TB Test (QFT) Antigen 2.39 TB Test (QFT) Positive H TB Positive Criteria GENERAL:WELL NOURISHED. SKIN:TATOOS ON BOTH LOWER LEGS HEART:S1 S2; RRR; NO MM/R LUNGS:CTA,OMER. ABDOMEN:SOFT,+BS ALL QUAD; NT/ND. EXTREMITIES:NO E/C/C Assessment: 09/25/18 10:22 [facility] Inpatient Services Medical - Diagnosis (1) Methadone maintenance therapy patient Current Visit: Yes Status: Chronic (2) History of asthma Current Visit: Yes Status: Chronic (3) Nicotine dependence, uncomplicated Qualifiers: Nicotine product type: cigarettes Qualified Code(s): F17.210 - Nicotine dependence, cigarettes, uncomplicated Current Visit: Yes Status: Chronic (4) Alcohol use disorder, moderate, in early remission Current Visit: Yes Status: Chronic Initialized on 09/26/18 11:37 - END OF NOTE MEDICALLY STABLE Plan: PT MAY DISCHARGE TOMORROW FOLLOW UP WITH CD AFTERCARE RECOMMENDATION. PT WILL BE FOLLOWING UP WITH HIS MMTP TO CONTINUE METHADONE DISCUSSED WITH HIS CLINIC ON
[2018-09-25] MEDS: PRENATAL VITAMINS W/ FOLIC ACID TABLET (FP) PO SCH (10:39)
[2018-09-25] MEDS: NICOTINE 21 MG/24 HOURS TOPICAL PATCH TD SCH (10:39)
[2018-09-25] MEDS: METHOCARBAMOL 500 MG TABLET PO PRN (10:40)
[2018-09-25] MEDS: hydrOXYzine PAMOATE 50 MG CAPSULE (FP) PO PRN ×2 (10:41→21:34)
--- NOTE | 2018-09-25 15:15 | PN ---
[facility] Progress Note Note: Patient is scheduled for discharge tomorrow. Scripts for 30 days supply of medications(Zyprexa 20 mg/hs, Remeron 15 mg/hs) will be electronically transmitted to [facility] at [address] [place] [address]
--- NOTE | 2018-09-25 15:21 | PN ---
[facility] Progress Note Note: Patient is scheduled for discharge tomorrow. Scripts for 30 days supply of medications(Wellbutrin XL 150 mg/day, Seroquel 100 mg/hs) will be electronically transmitted to [facility] at [id number] [place] [id number]
[2018-09-25] MEDS: THIAMINE HCL 100 MG TABLET (FP) PO SCH (21:33)
[2018-09-25] MEDS: QUEtiapine FUMARATE 100 MG TABLET (FP) PO SCH (21:33)
[2018-09-25] MEDS: MELATONIN 5 MG TABLETS PO PRN (21:34)
[2018-09-26] MEDS: METHADONE HCL 40 MG DISPERSABLE TABLET PO SCH (06:17)
[2018-09-26 07:00] VITALS: BP 149/92; PULSE 84; TEMP 98.2
[2018-09-26] MEDS: PRENATAL VITAMINS W/ FOLIC ACID TABLET (FP) PO SCH (10:25)
[2018-09-26] MEDS: hydrOXYzine PAMOATE 50 MG CAPSULE (FP) PO PRN (10:26)
[2018-09-26] MEDS: METHOCARBAMOL 500 MG TABLET PO PRN (10:26)
[2018-09-26] MEDS: IBUPROFEN 400 MG TABLET (FP) PO PRN (10:27)
[2018-09-26] MEDS: NICOTINE 21 MG/24 HOURS TOPICAL PATCH TD SCH (10:34)
== END 2018-09-26 12:26 | disposition home or self-care (01) | DRG 772 ==
LOC: YASAS 15:05 → Y5N 22:51
PROVIDERS: ADMIT Neuromusculoskeletal Medicine & OMM; ATTEND Neuromusculoskeletal Medicine & OMM
PROC: HZ42ZZZ Group Counseling for Substance Abuse Treatment, Cognitive-Behavioral (ICD-10-PCS; principal; 2018-08-29)
DX: F10.20 Alcohol dependence, uncomplicated (principal); F11.20 Opioid dependence, uncomplicated; F17.210 Nicotine dependence, cigarettes, uncomplicated; F19.24 Other psychoactive substance dependence with psychoactive substance-induced mood disorder; G47.00 Insomnia, unspecified; J45.909 Unspecified asthma, uncomplicated; H55.00 Unspecified nystagmus; M25.512 Pain in left shoulder; M25.572 Pain in left ankle and joints of left foot; H02.845 Edema of left lower eyelid; H05.012 Cellulitis of left orbit; Z86.59 Personal history of other mental and behavioral disorders
CPT/HCPCS: 36415; 71046-TC-FY; 80053; 81003; 85027; 86480; 86593; 93005; 93010

== ENCOUNTER 2019-02-28 11:53 | Inpatient (IN) | payer OTHER ==
[2019-02-28 13:24] VITALS: BMI 27.7
--- NOTE | 2019-02-28 14:27 | HP ---
COWS - Scale Resting Pulse: 0= MD 80 or Below Sweatin=Flushed/Facial Moisture Restless Observation: 1= Difficult to Sit Still Pupil Size: 2= Moderately Dilated (Pupils = 4 mm) Bone or Joint Aches: 1= Mild Discomfort Runny Nose/ Eye Tearin= Nasal Congestion GI Upset > 30mins: 2= Nausea/Diarrhea (Nausea w/ one episode diarrhea today) Tremor Observation: 4= Gross Tremor/Twitching Yawning Observation: 0= None Anxiety or Irritability: 1=Feels Anxious/Irritable Goose Flesh Skin: 0=Smooth Skin COWS Score: 14 CIWA Score Nausea/Vomitin-Mild Nausea/No Vomiting Muscle Tremors: 4-Moderate,w/Arms Extend Anxiety: 3 Agitation: 2 Paroxysmal Sweats: 3 Orientation: 0-Oriented Tacttile Disturbances: 0-None Auditory Disturbances: 0-None Visual Disturbances: 0-None Headache: 1-Very Mild (Frontal achy headache) CIWA-Ar Total Score: 14 - Admission Criteria OASAS Guidelines: Admission for Medically Managed Detox: Requires at least one of the followin. CIWA greater than 12 2. Seizures within the past 24 hours 3. Delirium tremens within the past 24 hours 4. Hallucinations within the past 24 hours 5. Acute intervention needed for co occurring medical disorder 6. Acute intervention needed for co occurring psychiatric disorder 7. Severe withdrawal that cannot be handled at a lower level of care (continued vomiting, continued diarrhea, abnormal vital signs) requiring intravenous medication and/or fluids 8. Patient presents the following: CIWA greater than 12 Admission Criteria Met: Admission criteria met Admitting History and Physical - Smoking History Smoking history: Current every day smoker Have you smoked in the past 12 months: Yes Aproximately how many cigarettes per day: 20 - Alcohol/Substance Use Hx Alcohol Use: Yes Admission ROS BHS - HPI Chief Complaint: Here for myself - I don't want to use drugs anymore" Allergies/Adverse Reactions: Allergies Allergy/AdvReac Type Severity Reaction Status Date / Time No Known Allergies Allergy Verified 08/29/18 18:52 History of Present Illness: 29 yo presents to [facility] seeking detox. Last here in rehab in September 2018. UTox: + SALLY/OPI/FEN/MTD/BZO MARVIN: 0.0 Denies blackouts or seizures. Hx: Overdoses - last 1 month ago - was given Narcan by EMS and taken to hospital. has no Narcan at home. Patient CIWA score is enough to admit for alcohol withdrawal but, based on the reported usage, symptoms may also be as a result of opioid withdrawal. Will place the patient on a short alcohol detox. Will give the patient methadone 30 mg PO x 2 days and then have patients' program contacted on Saturday to verify methadone dose. Patient states he wants to return to his methadone program when discharged. Heroin use disorder since age 19. was started on PROMESA - MMTP. States current dose is Methadone 50 mg daily. Last had methadone 7 days ago. States uses 1 bundle Heroin daily - IV. Last used heroin at 6 am today. Alcohol use since age 13. States currently drinks 4 - 12 oz beers daily. States last alcohol use was yesterday in a.m. Cocaine use since age 19. Currently uses 4-5 bags/day - IV. Nicotine use began at age 12. Smokes 1PPD. PMHx: Asthma (Last exacerbation 1 month ago - mild) MHHx: Depression.Insomnia. States compliant w/ Wellbutrin and Seroquel. States last took both 1 day ago. Denies thoughts of harming self or others. SHx. Lives w/ mother. Unemployed. On parole. Search Terms: Dev Galvez, 1990 Search Date: 02/28/2019 02:32:45 PM The Drug Utilization Report below displays all of the controlled substance prescriptions, if any, that your patient has filled in the last twelve months. The information displayed on this report is compiled from pharmacy submissions to the Department, and accurately reflects the information as submitted by the pharmacies. This report was requested by: Bessie Lowe | Reference #: [id number] There are no results for the search terms that you entered. Exam Limitations: No Limitations - Ebola screening Have you traveled outside of the country in the last 21 days: No (N) Have you had contact with anyone from an Ebola affected area: No Have you been sick,other than usual withdrawal symptoms: No Do you have a fever: No - Review of Systems Constitutional: Changes in sleep (States takes Seroqul for sleep.) EENT: reports: Nose Congestion Respiratory: reports: No Symptoms reported Cardiac: reports: No Symptoms Reported GI: reports: Diarrhea (watery diarrhea x 1 today - yellowish), Nausea : reports: No Symptoms Reported Musculoskeletal: reports: Back Pain (mild back pain r/t withdrawal) Integumentary: reports: No Symptoms Reported Neuro: reports: Headache (Frontal achy headache "5"), Tremors Endocrine: reports: No Symptoms Reported Hematology: reports: No Symptoms Reported Psychiatric: reports: Judgement Intact, Orientated x3, Anxious Patient History - Patient Medical History Hx Asthma: Yes Hx Chronic Obstructive Pulmonary Disease (COPD): No Hx Cardiac Disorders: No Hx Hypertension: No Hx Seizures: No Hx Diabetes: No Hx Gastrointestinal Disorders: No Hx Genitourinary Disorders: No Hx Sexually Transmitted Disorders: No Hx Renal Disease (ESRD): No Hx Depression: Yes - Patient Surgical History Past Surgical History: No - PPD History Previous Implant?: Yes (TB Gold/Quantiferon) Documented Results: Negative w/proof Implanted On Prior R Admission?: Yes Date: 08/30/18 (TB Gold/Quantiferon) Results: Neg PPD to be Administered?: No - Smoking Cessation Smoking history: Current every day smoker Have you smoked in the past 12 months: Yes Aproximately how many cigarettes per day: 20 Hx Chewing Tobacco Use: No Initiated information on smoking cessation: Yes 'Breaking Loose' booklet given: 02/28/19 - Substance & Tx. History Hx Alcohol Use: Yes Hx Substance Use: Yes Substance Use Type: Alcohol, Cocaine, Heroin Hx Substance Use Treatment: Yes (detox, rehab, MMTP) - Substances abused Heroin Substance route: Injection Frequency: Daily Amount used: 5 bags Age of first use: 19 Date of last use: 02/28/19 Alcohol Substance route: Oral Frequency: Daily Amount used: 4 beers Age of first use: 13 Date of last use: 02/27/19 Cocaine Substance route: Injection Frequency: Daily Amount used: 4 bags Age of first use: 19 Date of last use: 02/28/19 Admission Physical Exam BHS - Vital Signs Vital Signs: Vital Signs - 24 hr 02/28/19 13:13 Temperature 97.1 F L Pulse Rate 80 Respiratory 19 Rate Blood Pressure 142/90 - Physical General Appearance: Yes: Mild Distress, Tremorous, Sweating (Increased facial moisture), Anxious HEENTM: Yes: EOMI (Slight nystagmus on (L) lateral gaze), Hearing grossly Normal , Normocephalic, Normal Voice, TAYE (Pupils = 4 mm), Pharynx Normal, Nasal Congestion Respiratory: Yes: Lungs Clear (Pulse Ox =98%), Normal Breath Sounds, No Respiratory Distress Neck: Yes: No masses,lesions,Nodules, Supple Breast: Yes: Breast Exam Deferred Cardiology: Yes: Regular Rhythm, Regular Rate (HR: 66), S1, S2 Abdominal: Yes: Non Tender, Flat, Soft, Increased Bowel Sounds Genitourinary: Yes: Within Normal Limits Back: Yes: Normal Inspection Musculoskeletal: Yes: full range of Motion Extremities: Yes: Tremors (Gross tremors w/ arms extended), Swelling ((L) ankle and foot swelling. Tenderness (L) outer malleolus. FROM ankle w/o crepitus. FWB. Pedal pulses +.) Neurological: Yes: gasoline engine assembler II-XII NML intact (Slight nystagmus on (L) lateral gaze) , Fully Oriented, Alert, Motor Strength 5/5, Normal Mood/Affect Integumentary: Yes: Normal Color, Warm, Moist (Increased facial moisture), Track Abel (Both forearms. No increased warmth or induration at injection sites.) Lymphatic: Yes: Within Normal Limits - Diagnostic (1) Alcohol dependence with withdrawal, uncomplicated Current Visit: Yes Status: Acute (2) Nicotine dependence, uncomplicated Current Visit: No Status: Chronic Qualifiers: Nicotine product type: cigarettes Qualified Code(s): F17.210 - Nicotine dependence, cigarettes, uncomplicated (3) Opioid dependence on agonist therapy Current Visit: Yes Status: Chronic Comment: On MMTP. Missed 1 week. Needs MMTP called for dose verification. (4) History of asthma Current Visit: Yes Status: Chronic (5) Cocaine dependence, uncomplicated Current Visit: Yes Status: Chronic (6) Nystagmus Current Visit: Yes Status: Chronic Cleared for Admission S - Detox or Rehab [facility] Level of Care: Medically Managed Detox Regimen/Protocol: Librium Claeared for Rehab Admission: No Breathalyzer - Breathalyzer Breathalyzer: 0 Urine Drug Screen - Test Device Lot number: [id number] Expiration date: 10/01/20 - Control Is test valid?: Yes - Results Drug screen NEGATIVE: No Urine drug screen results: SALLY-Cocaine, FEN-Fentanyl, MOP-Opiates, MTD-Methadone , BZO-Benzodiazepines Inpatient Rehab Admission - Rehab Decision to Admit Inpatient rehab admission?: No
[2019-02-28] MEDS ORDERED: MAGNESIUM CITRATE 300 ML BOTTLE PO PRN (15:28)
[2019-02-28] MEDS ORDERED: IBUPROFEN 400 MG TABLET (FP) PO PRN (15:28)
[2019-02-28] MEDS ORDERED: MELATONIN 5 MG TABLETS PO PRN (15:28)
[2019-02-28] MEDS ORDERED: MAGNESIUM HYDROX 2400MG/30ML ORAL SUSPENSION 30 ML CUP PO PRN (15:28)
[2019-02-28] MEDS ORDERED: chlordiazePOXIDE 5 MG CAPSULE PO PRN (15:28)
[2019-02-28] MEDS ORDERED: MENTHOL/PHENOL 1 EACH UD MM PRN (15:28)
[2019-02-28] MEDS ORDERED: BISMUTH SUBSALICYLATE 524 MG/30 ML UD PO PRN (15:28)
[2019-02-28] MEDS ORDERED: ACETAMINOPHEN 325 MG TABLET (FP) PO PRN ×2 (15:28)
[2019-02-28] MEDS ORDERED: MAG HYDROX/AL HYDROX/SIMETH 30 ML UNIT-DOSE CUP PO PRN (15:28)
[2019-02-28] MEDS ORDERED: NICOTINE POLACRILEX 2 MG GUM BUC PRN (15:28)
[2019-02-28] MEDS ORDERED: METHADONE HCL 10 MG TABLET PO ONE (15:39)
[2019-02-28] MEDS ORDERED: QUEtiapine FUMARATE 50 MG TABLET PO SCH (22:00)
[2019-02-28] MEDS: chlordiazePOXIDE 5 MG CAPSULE PO SCH (22:19)
[2019-02-28] MEDS: THIAMINE HCL 100 MG TABLET (FP) PO SCH (22:19)
[2019-03-01] MEDS: chlordiazePOXIDE 5 MG CAPSULE PO SCH ×3 (05:51→22:01)
[2019-03-01 09:25] LABS: HEMATOCRIT 38.1 % (35.4-49); HEMOGLOBIN 12.7 GM/dL (11.7-16.9); MCH 29.6 pg (25.7-33.7); MCHC 33.2 g/dl (32.0-35.9); MEAN CELL VOLUME 89.2 fl (80-96); MEAN PLT VOLUME 8.5 fl (7.5-11.1); PLATELET COUNT 245 K/MM3 (134-434); RBC 4.28 M/mm3 (4.00-5.60); RDW 13.1 % (11.9-15.9); WHITE BLOOD COUNT 6.2 K/mm3 (4.0-10.0)
[2019-03-01 09:34] LABS: ALBUMIN 3.5 g/dl (3.4-5.0); BILIRUBIN,TOTAL 0.3 mg/dL (0.2-1); BLOOD UREA NITROGEN 12.1 mg/dL (7-18); CALCIUM 9.2 mg/dL (8.5-10.1); CREATININE 0.8 mg/dL (0.55-1.3); POTASSIUM 3.9 mmol/L (3.5-5.1)
[2019-03-01] MEDS: PRENATAL VITAMINS W/ FOLIC ACID TABLET (FP) PO SCH (09:40)
[2019-03-01] MEDS: NICOTINE 21 MG/24 HOURS TOPICAL PATCH TD SCH (09:58)
[2019-03-01] MEDS ORDERED: METHADONE HCL 10 MG TABLET PO ONE (10:00)
--- NOTE | 2019-03-01 10:13 | CONSULT ---
[facility] Psychiatric Consult - Data Date of interview: 03/01/19 Admission source: [facility] Identifying data: Patient is a 29 year old Gu[place]ian male, father of three, unemployed, homeless, and is not currently receiving financial assistance. This is one of multiple admissions for patient. Patient admitted to for alcohol, cocaine and opiate dependence. Substance Abuse History: - Smoking Cessation. Smoking history: Current every day smoker. Have you smoked in the past 12 months: Yes. Aproximately how many cigarettes per day: 20. Hx Chewing Tobacco Use: No. Initiated information on smoking cessation: Yes. 'Breaking Loose' booklet given: 02/28/19. - Substance & Tx. History. Hx Alcohol Use: Yes. Hx Substance Use: Yes. Substance Use Type : Alcohol, Cocaine, Heroin. Hx Substance Use Treatment: Yes (detox, rehab, MMTP ). - Substances abused. Heroin. Substance route: Injection. Frequency: Daily. Amount used: 5 bags. Age of first use: 19. Date of last use: . Alcohol. Substance route: Oral. Frequency: Daily. Amount used: 4 beers. Age of first use: 13. Date of last use: 02/27/19. Cocaine. Substance route: Injection. Frequency: Daily. Amount used: 4 bags. Age of first use: 19. Date of last use: 02/28/19 Medical History: Remarkable for bronchial asthma. Patient endorses good general health Psychiatric History: Mr. Galvez's first psychiatric contact was as an teenager due to mood instability although is unable to recall medications prescribed. He denies history of psychiatric hospitalizations. He reports two admissions to the [facility] most recently two weeks ago at [facility] after reporting suicidal thoughts. States that he is currently receiving outpatient psychiatric care at [facility] and is prescribed wellbutrin 300mg + Seroquel 300mg HS. Diagnosis of MDD + Bipolar disorder + Anxiety disorder. States that his medications were increased after discharge from rehab in September in which he was receiving wellbutrin 150mg XL + seroquel 100mg HS. Patient reports history of one suicide attempt by self mutilation at 15 years of age. At present patient reports feeling sad and is experiencing difficulty sleeping. Physical/Sexual Abuse/Trauma History: denies. Mental Status Exam - Mental Status Exam Alert and Oriented to: Time, Place, Person Cognitive Function: Good Patient Appearance: Well Groomed Mood: Withdrawn Affect: Mood Congruent Patient Behavior: Fatigued, Cooperative Speech Pattern: Appropriate Voice Loudness: Normal (Khmer speaking) Thought Process: Goal Oriented Thought Disorder: Not Present Hallucinations: Denies Suicidal Ideation: Denies Homicidal Ideation: Denies Insight/Judgement: Poor Sleep: Poorly Appetite: Fair Muscle strength/Tone: Normal Gait/Station: Normal Psychiatric Findings - Problem List ([place] 1, 2,3) (1) Mood disorder Current Visit: Yes Status: Chronic (2) Alcohol dependence with withdrawal, uncomplicated Current Visit: Yes Status: Acute (3) Cocaine dependence, uncomplicated Current Visit: Yes Status: Chronic (4) Opioid dependence on agonist therapy Current Visit: Yes Status: Chronic Comment: On MMTP. Missed 1 week. Needs MMTP called for dose verification. (5) Nicotine dependence, uncomplicated Current Visit: Yes Status: Chronic Qualifiers: Nicotine product type: cigarettes Qualified Code(s): F17.210 - Nicotine dependence, cigarettes, uncomplicated (6) Substance induced mood disorder Current Visit: Yes Status: Chronic - Initial Treatment Plan Initial Treatment Plan: Psychoeducation provided. Detoxification in progress. Will order Wellbutrin 300mg XL + Seroquel 200mg HS. Benefits and side effects discussed. Verbal consent given.
--- NOTE | 2019-03-01 13:10 | PN ---
S CIWA - CIWA Score Nausea/Vomitin-Mild Nausea/No Vomiting Muscle Tremors: 4-Moderate,w/Arms Extend Anxiety: 3 Agitation: 2 Paroxysmal Sweats: 1-Minimal Palms Moist Orientation: 0-Oriented Tacttile Disturbances: 0-None Auditory Disturbances: 0-None Visual Disturbances: 0-None Headache: 2-Mild CIWA-Ar Total Score: 13 S Progress Note (SOAP) Subjective: 29 years old male admitted on 02/28/19 for alcohol withdrawal sx management treating with librium detox regimen positive opioid urine tox upon admission received methadone 30mg po today and yesterday methadone 50mg po daily will be verified tomorrow Objective: 03/01/19 13:10 Vital Signs Temperature 98.3 F 03/01/19 09:06 Pulse Rate 62 03/01/19 09:06 Respiratory Rate 18 03/01/19 09:06 Blood Pressure 124/71 03/01/19 09:06 O2 Sat by Pulse Oximetry (%) Laboratory Last Values WBC 6.2 K/mm3 (4.0-10.0) 03/01/19 07:20 RBC 4.28 M/mm3 (4.00-5.60) 03/01/19 07:20 Hgb 12.7 GM/dL (11.7-16.9) 03/01/19 07:20 Hct 38.1 % (35.4-49) 03/01/19 07:20 MCV 89.2 fl (80-96) 03/01/19 07:20 MCH 29.6 pg (25.7-33.7) 03/01/19 07:20 MCHC 33.2 g/dl (32.0-35.9) 03/01/19 07:20 RDW 13.1 % (11.9-15.9) 03/01/19 07:20 Plt Count 245 K/MM3 (134-434) D 03/01/19 07:20 MPV 8.5 fl (7.5-11.1) 03/01/19 07:20 Sodium 141 mmol/L (136-145) 03/01/19 07:20 Potassium 3.9 mmol/L (3.5-5.1) 03/01/19 07:20 Chloride 106 mmol/L (98-107) 03/01/19 07:20 Carbon Dioxide 31 mmol/L (21-32) 03/01/19 07:20 Anion Gap 4 MMOL/L (8-16) L 03/01/19 07:20 BUN 12.1 mg/dL (7-18) 03/01/19 07:20 Creatinine 0.8 mg/dL (0.55-1.3) 03/01/19 07:20 Est GFR (CKD-EPI)AfAm 139.91 03/01/19 07:20 Est GFR (CKD-EPI)NonAf 120.72 03/01/19 07:20 Random Glucose 106 mg/dL (74-106) 03/01/19 07:20 Calcium 9.2 mg/dL (8.5-10.1) 03/01/19 07:20 Total Bilirubin 0.3 mg/dL (0.2-1) 03/01/19 07:20 AST 13 U/L (15-37) L 03/01/19 07:20 ALT 22 U/L (13-61) 03/01/19 07:20 Alkaline Phosphatase 58 U/L (45-117) 03/01/19 07:20 Total Protein 7.0 g/dl (6.4-8.2) 03/01/19 07:20 Albumin 3.5 g/dl (3.4-5.0) 03/01/19 07:20 RPR Titer Nonreactive (NONREACTIVE) 03/01/19 07:20 lab noted Assessment: 03/01/19 13:10 alcohol withdrawal Plan: librium regimen
[2019-03-01] MEDS: QUEtiapine FUMARATE 100 MG TABLET (FP) PO SCH (22:01)
[2019-03-01] MEDS: THIAMINE HCL 100 MG TABLET (FP) PO SCH (22:02)
[2019-03-02] MEDS: chlordiazePOXIDE 5 MG CAPSULE PO SCH ×3 (05:21→22:13)
[2019-03-02] MEDS ORDERED: METHADONE HCL 40 MG DISPERSABLE TABLET PO ONE (10:00)
[2019-03-02] MEDS: PRENATAL VITAMINS W/ FOLIC ACID TABLET (FP) PO SCH (10:03)
[2019-03-02] MEDS: NICOTINE 21 MG/24 HOURS TOPICAL PATCH TD SCH (10:03)
--- NOTE | 2019-03-02 11:25 | PN ---
S CIWA - CIWA Score Nausea/Vomitin-Mild Nausea/No Vomiting Muscle Tremors: 2 Anxiety: 2 Agitation: 1-Slight > Activity Paroxysmal Sweats: 2 Orientation: 0-Oriented Tacttile Disturbances: 0-None Auditory Disturbances: 0-None Visual Disturbances: 0-None Headache: 1-Very Mild CIWA-Ar Total Score: 9 S Progress Note (SOAP) Subjective: 29 years old male admitted on 02/28/19 for alcohol withdrawal sx management treating with librium detox regimen patient received methadone 30 mg po at 02/28 adn 03/01 patient is taking methadone 50 mg po daily as per verification that last dose 50mg methadone at 02/18/19 patient will received methadone 40mg today and 50mg tomorrow 03/03/19 patient prefers to return to methadone program Objective: 03/02/19 11:27 Vital Signs Temperature 98.2 F 03/02/19 09:09 Pulse Rate 64 03/02/19 09:09 Respiratory Rate 18 03/02/19 09:09 Blood Pressure 130/95 03/02/19 09:09 O2 Sat by Pulse Oximetry (%) Laboratory Last Values WBC 6.2 K/mm3 (4.0-10.0) 03/01/19 07:20 RBC 4.28 M/mm3 (4.00-5.60) 03/01/19 07:20 Hgb 12.7 GM/dL (11.7-16.9) 03/01/19 07:20 Hct 38.1 % (35.4-49) 03/01/19 07:20 MCV 89.2 fl (80-96) 03/01/19 07:20 MCH 29.6 pg (25.7-33.7) 03/01/19 07:20 MCHC 33.2 g/dl (32.0-35.9) 03/01/19 07:20 RDW 13.1 % (11.9-15.9) 03/01/19 07:20 Plt Count 245 K/MM3 (134-434) D 03/01/19 07:20 MPV 8.5 fl (7.5-11.1) 03/01/19 07:20 Sodium 141 mmol/L (136-145) 03/01/19 07:20 Potassium 3.9 mmol/L (3.5-5.1) 03/01/19 07:20 Chloride 106 mmol/L (98-107) 03/01/19 07:20 Carbon Dioxide 31 mmol/L (21-32) 03/01/19 07:20 Anion Gap 4 MMOL/L (8-16) L 03/01/19 07:20 BUN 12.1 mg/dL (7-18) 03/01/19 07:20 Creatinine 0.8 mg/dL (0.55-1.3) 03/01/19 07:20 Est GFR (CKD-EPI)AfAm 139.91 03/01/19 07:20 Est GFR (CKD-EPI)NonAf 120.72 03/01/19 07:20 Random Glucose 106 mg/dL (74-106) 03/01/19 07:20 Calcium 9.2 mg/dL (8.5-10.1) 03/01/19 07:20 Total Bilirubin 0.3 mg/dL (0.2-1) 03/01/19 07:20 AST 13 U/L (15-37) L 03/01/19 07:20 ALT 22 U/L (13-61) 03/01/19 07:20 Alkaline Phosphatase 58 U/L (45-117) 03/01/19 07:20 Total Protein 7.0 g/dl (6.4-8.2) 03/01/19 07:20 Albumin 3.5 g/dl (3.4-5.0) 03/01/19 07:20 RPR Titer Nonreactive (NONREACTIVE) 03/01/19 07:20 lab noted Assessment: 03/02/19 11:27 alcohol withdrawal Plan: librium regimen
[2019-03-02] MEDS: QUEtiapine FUMARATE 100 MG TABLET (FP) PO SCH (22:13)
[2019-03-02] MEDS: THIAMINE HCL 100 MG TABLET (FP) PO SCH (22:13)
[2019-03-03] MEDS ORDERED: METHADONE HCL 40 MG DISPERSABLE TABLET ONE (04:04)
[2019-03-03] MEDS ORDERED: METHADONE HCL 10 MG TABLET ONE (04:04)
[2019-03-03] MEDS ORDERED: chlordiazePOXIDE 5 MG CAPSULE PO SCH (05:00)
[2019-03-03] MEDS ORDERED: METHADONE 40 MG, METHADONE 10 MG PO SCH (06:00)
[2019-03-03] MEDS ORDERED: METHADONE HCL 10 MG TABLET PO SCH (06:00)
[2019-03-03 09:07] VITALS: BP 137/99; PULSE 95; TEMP 98.4
[2019-03-03] MEDS: PRENATAL VITAMINS W/ FOLIC ACID TABLET (FP) PO SCH (09:16)
[2019-03-03] MEDS: NICOTINE 21 MG/24 HOURS TOPICAL PATCH TD SCH (09:19)
--- NOTE | 2019-03-03 13:34 | DS ---
[facility] Detox Discharge Summary Admission Date: 02/28/19 Discharge Date: 03/03/19 - History Present History: Alcohol Dependence Additional Comments: 29 years old male admitted on 02/28/19 for alcohol withdrawal sx management treated with librium detox regimen patient requests to be discharged one day early as per estimated discharge day of 03/04/19 case discussed with the nurse routine discharge is appropriated patient tolerated librium detox regimen well alert oriented x 3 cardiac s1s2 regular rate rhythm respiratory clear lung bilaterally on auscultation extremities full range of motion Pertinent Past History: date of admission 02/28/19 date of discharge 03/03/[address] López admitting diagnosis alcohol dependent and uncomplicated withdrawal Laboratory Last Values WBC 6.2 K/mm3 (4.0-10.0) 03/01/19 07:20 RBC 4.28 M/mm3 (4.00-5.60) 03/01/19 07:20 Hgb 12.7 GM/dL (11.7-16.9) 03/01/19 07:20 Hct 38.1 % (35.4-49) 03/01/19 07:20 MCV 89.2 fl (80-96) 03/01/19 07:20 MCH 29.6 pg (25.7-33.7) 03/01/19 07:20 MCHC 33.2 g/dl (32.0-35.9) 03/01/19 07:20 RDW 13.1 % (11.9-15.9) 03/01/19 07:20 Plt Count 245 K/MM3 (134-434) D 03/01/19 07:20 MPV 8.5 fl (7.5-11.1) 03/01/19 07:20 Sodium 141 mmol/L (136-145) 03/01/19 07:20 Potassium 3.9 mmol/L (3.5-5.1) 03/01/19 07:20 Chloride 106 mmol/L (98-107) 03/01/19 07:20 Carbon Dioxide 31 mmol/L (21-32) 03/01/19 07:20 Anion Gap 4 MMOL/L (8-16) L 03/01/19 07:20 BUN 12.1 mg/dL (7-18) 03/01/19 07:20 Creatinine 0.8 mg/dL (0.55-1.3) 03/01/19 07:20 Est GFR (CKD-EPI)AfAm 139.91 03/01/19 07:20 Est GFR (CKD-EPI)NonAf 120.72 03/01/19 07:20 Random Glucose 106 mg/dL (74-106) 03/01/19 07:20 Calcium 9.2 mg/dL (8.5-10.1) 03/01/19 07:20 Total Bilirubin 0.3 mg/dL (0.2-1) 03/01/19 07:20 AST 13 U/L (15-37) L 03/01/19 07:20 ALT 22 U/L (13-61) 03/01/19 07:20 Alkaline Phosphatase 58 U/L (45-117) 03/01/19 07:20 Total Protein 7.0 g/dl (6.4-8.2) 03/01/19 07:20 Albumin 3.5 g/dl (3.4-5.0) 03/01/19 07:20 RPR Titer Nonreactive (NONREACTIVE) 03/01/19 07:20 Home Medication List Medication Instructions Recorded Confirmed Type Bupropion HCl [Wellbutrin Xl -] 150 mg PO BID 02/28/19 02/28/19 History Quetiapine Fumarate [Seroquel] 300 mg PO HS 02/28/19 02/28/19 History Allergies No Known Allergies Allergy (Verified 08/29/18 18:52) patient was doing well through out the detox no complications during the detox disposition to [facility] - Physical Exam Results Vital Signs: Vital Signs Temperature 98.4 F 03/03/19 09:06 Pulse Rate 95 H 03/03/19 09:06 Respiratory Rate 18 03/03/19 09:06 Blood Pressure 137/99 03/03/19 09:06 O2 Sat by Pulse Oximetry (%) Pertinent Admission Physical Exam Findings: alcohol withdrawal CBC, BMP 03/01/19 07:20 03/01/19 07:20 - Treatment Hospital Course: Detox Protocol Followed, Detoxed Safely, Responded well, Discharged Condition Good, Rehab Referral Accepted Patient has Accepted a Rehab Referral to: [facility] - Medication Discharge Medications: Ambulatory Orders Bupropion HCl [Wellbutrin Xl -] 150 mg PO BID 02/28/19 Quetiapine Fumarate [Seroquel] 300 mg PO HS 02/28/19 - Diagnosis (1) Positive PPD Status: Resolved (2) Alcohol use disorder, moderate, in early remission Status: Acute (3) History of asthma Status: Chronic (4) Nicotine dependence, uncomplicated Status: Acute Qualifiers: Nicotine product type: cigarettes Qualified Code(s): F17.210 - Nicotine dependence, cigarettes, uncomplicated (5) Substance induced mood disorder Status: Suspected (6) Alcohol dependence with withdrawal, uncomplicated Status: Acute (7) Methadone maintenance therapy patient Status: Chronic - AMA Did Patient Leave Against Medical Advice: No CIWA Score - CIWA Score Nausea/Vomitin-No Nausea/No Vomiting Muscle Tremors: 1-None Visible, but [place] Anxiety: 1-Mildly Anxious Agitation: 0-Normal Activity Paroxysmal Sweats: 1-Minimal Palms Moist Orientation: 0-Oriented Tacttile Disturbances: 0-None Auditory Disturbances: 0-None Visual Disturbances: 0-None Headache: 1-Very Mild CIWA-Ar Total Score: 4
[2019-03-04] MEDS ORDERED: chlordiazePOXIDE 5 MG CAPSULE PO ONE (05:00)
== END 2019-03-03 09:26 | disposition home or self-care (01) | DRG 773 ==
LOC: YASAS 11:53 → Y3N 15:53
PROVIDERS: ADMIT Allergy & Immunology; ATTEND Allergy & Immunology
PROC: HZ2ZZZZ Detoxification Services for Substance Abuse Treatment (ICD-10-PCS; principal; 2019-02-28)
DX: F10.230 Alcohol dependence with withdrawal, uncomplicated (principal); F11.20 Opioid dependence, uncomplicated; F14.20 Cocaine dependence, uncomplicated; F17.210 Nicotine dependence, cigarettes, uncomplicated; F19.24 Other psychoactive substance dependence with psychoactive substance-induced mood disorder; F39 Unspecified mood [affective] disorder; J45.909 Unspecified asthma, uncomplicated; R76.11 Nonspecific reaction to tuberculin skin test without active tuberculosis; H55.00 Unspecified nystagmus; Z86.59 Personal history of other mental and behavioral disorders; Z56.0 Unemployment, unspecified
CPT/HCPCS: 36415; 80053; 85027; 86593

== ENCOUNTER 2019-03-15 19:02 | Emergency (ER) | payer OTHER ==
[2019-03-15 19:17] VITALS: BP 126/77; PULSE 91; TEMP 98.7; BMI 26.9
[2019-03-15] MEDS ORDERED: IBUPROFEN 600 MG TABLET (FP) PO ONE ×2 (20:11→20:15)
--- NOTE | 2019-03-15 20:26 | PDOC ---
History of Present Illness - General Chief Complaint: Injury Stated Complaint: SWOLLING AND PAIN Time Seen by Provider: 03/15/19 20:06 History Source: Patient Exam Limitations: No Limitations - History of Present Illness Initial Comments: 03/15/19 20:21 Patient is a 29-year-old male who presents to the ED with a left ankle injury that he initially sustained 2 weeks ago. He states that he initially inverted his ankle but continued to walk on it with some difficulty and swelling. Today he inverted it again and has been having more pain and more swelling. He is currently at [facility] for cocaine and heroin use. He denies any other past medical history. He denies any fevers or chills. Past History - Past Medical History Allergies/Adverse Reactions: Allergies Allergy/AdvReac Type Severity Reaction Status Date / Time No Known Allergies Allergy Verified 03/15/19 18:13 Home Medications: Ambulatory Orders Bupropion HCl [Wellbutrin Xl -] 150 mg PO BID 02/28/19 Quetiapine Fumarate [Seroquel] 300 mg PO HS 02/28/19 Asthma: Yes Cardiac Disorders: No COPD: No Diabetes: No GI Disorders: No Disorders: No HTN: No Kidney Stones: No Seizures: No - Reproductive History Testicular Surgery: No - Psycho Social/Smoking Cessation Hx Smoking History: Current every day smoker Have you smoked in the past 12 months: Yes Number of Cigarettes Smoked Daily: 20 Information on smoking cessation initiated: No 'Breaking Loose' booklet given: 02/28/19 Hx Alcohol Use: Yes (heroin and coccaine) Drug/Substance Use Hx: Yes (8 bottles) Substance Use Type: Alcohol, Cocaine, Heroin Hx Substance Use Treatment: Yes (detox, rehab, MMTP) Review of Systems - Review of Systems Comments:: 03/15/19 20:22 - Review of Systems Able to Perform ROS?: Yes Constitutional: No: Fever, Chills, Loss of Appetite, Night Sweats, Weakness Respiratory: No: Cough, Shortness of Breath, Wheezing, Sputum Production Cardiac (ROS): No: Chest Pain, Chest Tightness, Palpitations, Irregular Heart Beat, Edema ABD/GI: No: Nausea, Vomiting, Abdominal Pain, Diarrhea Musculoskeletal: No: Muscle Pain, Back Pain, Muscle Weakness, Neck Pain; Positive left ankle pain and swelling Integumentary: No: Lesions, Rash Neurological: No: Headache, Numbness, Tingling, Weakness, Speech Difficulties *Physical Exam - Vital Signs Last Vital Signs Temp Pulse Resp BP Pulse Ox 98.7 F 91 H 19 126/77 96 03/15/19 19:13 03/15/19 19:13 03/15/19 19:13 03/15/19 19:13 03/15/19 19:13 - Physical Exam 03/15/19 20:23 - Physical Exam General Appearance: Nourished, Appropriately Dressed, No Distress Neck: Supple, No Decreased range of motion Respiratory/Chest: Lungs Clear, Normal Breath Sounds. No Respiratory Distress, No Accessory Muscle Use Cardiovascular: Regular Rhythm, Regular Rate, S1, S2 Musculoskeletal: L ankle with significant swelling. Mild tenderness to the medially along the deltoid ligament. Significant tenderness to the anterior talofibular ligament region. No distal fibular tenderness to palpation. No tenderness along the fifth metatarsal. DP pulse palpable. Patient able to move all toes freely. Brisk capillary refill distally. Skin pink and warm. Integumentary: Normal Color, Dry. No Rash Neurologic: college dean II-XII NML intact, Fully Oriented, Alert, Normal Mood/Affect, Normal Response ED Treatment Course - RADIOLOGY Radiology Studies Ordered: Category Date Time Status ANKLE-LEFT [RAD] Stat Radiology 03/15/19 20:12 Ordered - Medications Given in the ED: ED Medications Discontinued Medications Generic Name Dose Route Start Last Admin Trade Name Freq PRN Reason Stop Dose Admin Ibuprofen 600 mg 03/15/19 20:11 03/15/19 20:17 Motrin - PO 03/15/19 20:12 600 mg ONCE ONE Administration Medical Decision Making - Medical Decision Making 03/15/19 21:15 The patient is a 29-year-old male with a left ankle injury consistent with a sprain. He has been placed in an Aircast today and has been made aware that he should stay off his ankle as much as possible to allow for healing. He should ice and elevate. He should follow-up with orthopedics within 1 week for repeat evaluation. He understands and agrees with treatment and plan and the patient is stable for discharge. Discharge - Discharge Information Problems reviewed: Yes Clinical Impression/Diagnosis: Left ankle sprain Qualifiers: Encounter type: initial encounter Involved ligament of ankle: other ligament Qualified Code(s): S93.492A - Sprain of other ligament of left ankle, initial encounter Condition: Stable Disposition: HOME - Follow up/Referral Referrals: Richy Chaves DO [Staff Physician] - - Patient Discharge Instructions Patient Printed Discharge Instructions: DI for Ankle Sprain Additional Instructions: Ice and elevate your ankle. Try not to walk on it as much as possible. Wear the Aircast to help support your ankle. Follow-up with orthopedics within 1 week for repeat evaluation. Take Tylenol or ibuprofen for pain. - Post Discharge Activity
== END 2019-03-15 21:35 | disposition home or self-care (01) ==
LOC: JERFT 19:02
DX: S93.492A Sprain of other ligament of left ankle, initial encounter (principal); X50.1XXA Overexertion from prolonged static or awkward postures, initial encounter; Y93.89 Activity, other specified; Y92.89 Other specified places as the place of occurrence of the external cause; Y99.8 Other external cause status; F17.210 Nicotine dependence, cigarettes, uncomplicated; F10.10 Alcohol abuse, uncomplicated; F11.10 Opioid abuse, uncomplicated; F14.10 Cocaine abuse, uncomplicated
CPT/HCPCS: 73610-TC-LT-FY; 99283-25

== ENCOUNTER 2019-03-16 08:09 | Inpatient (IN) | payer OTHER ==
[2019-03-16 08:46] VITALS: BMI 26.9
--- NOTE | 2019-03-16 09:19 | HP ---
COWS - Scale Resting Pulse: 0= RI 80 or Below Sweatin= Beads of Sweat on Face Restless Observation: 1= Difficult to Sit Still Pupil Size: 0= Normal to Room Light Bone or Joint Aches: 2= Severe Diffuse Aches Runny Nose/ Eye Tearin= Nasal Congestion GI Upset > 30mins: 2= Nausea/Diarrhea Tremor Observation: 2= Slight Tremor Visible Yawning Observation: 1= 1-2x During Session Anxiety or Irritability: 1=Feels Anxious/Irritable Goose Flesh Skin: 0=Smooth Skin COWS Score: 13 CIWA Score - Admission Criteria OASAS Guidelines: Admission for Medically Managed Detox: Requires at least one of the followin. CIWA greater than 12 2. Seizures within the past 24 hours 3. Delirium tremens within the past 24 hours 4. Hallucinations within the past 24 hours 5. Acute intervention needed for co occurring medical disorder 6. Acute intervention needed for co occurring psychiatric disorder 7. Severe withdrawal that cannot be handled at a lower level of care (continued vomiting, continued diarrhea, abnormal vital signs) requiring intravenous medication and/or fluids 8. Admitting History and Physical - Admission Chief Complaint: "I want to stop using drug. I want to have a future." History of Present Illness: 29 year old male with history of opioid dependence, former patient of [facility], also is being monitored by [facility]. He has been mandated to treatment by paro and if he does not complete, he may be incarcerated. He has still been actively using cocaine and heroin daily. He is using 1-2 bundles of heroin intravenously daily since leaving [facility] on 03/03/19. He admits to buying street methadone when he could not find heroin.Last overdosed 3 months ago. He wants to return to [facility] on methadone. Will call to confirm last date and dose of methadone. He is using 1-2 bags of cocaine daily intravenously. He also sprained his left ankle during twist walking up a staircase. H He was seen in [facility] yesterday with diagnosis of left ankle sprain. Breathalyzer 0 Urine tox positive for cocaine, fentanyl, opioids, methadone Benzo. PMH: Asthma Psych: Bipolar and Depression Meds: Seroquel Wellbutrin All: NKDA History Source: Patient Limitations to Obtaining History: No Limitations - Past Surgical History Past Surgical History: Yes: None - Advance Directives Advance Directives: No: Living Will, Health Care Proxy, DNR - Smoking History Smoking history: Current every day smoker Have you smoked in the past 12 months: Yes Aproximately how many cigarettes per day: 20 - Alcohol/Substance Use Hx Alcohol Use: Yes (heroin and coccaine) - Social History Usual Living Arrangement: Yes: Alone Do you think of yourself as: Straight/Heterosexual ADL: Independent Occupation: unemployed History of Recent Travel: No Admission [facility] Allergies/Adverse Reactions: Allergies Allergy/AdvReac Type Severity Reaction Status Date / Time No Known Allergies Allergy Verified 03/16/19 08:37 Exam Limitations: No Limitations - Ebola screening Have you traveled outside of the country in the last 21 days: No Have you had contact with anyone from an Ebola affected area: No Have you been sick,other than usual withdrawal symptoms: No Do you have a fever: No - Review of Systems Constitutional: Chills, Diaphoresis, Unintentional Wgt. Loss EENT: reports: No Symptoms Reported Respiratory: reports: No Symptoms reported Cardiac: reports: No Symptoms Reported GI: reports: No Symptoms Reported : reports: No Symptoms Reported Musculoskeletal: reports: No Symptoms Reported Integumentary: reports: No Symptoms Reported Neuro: reports: No Symptoms reported Endocrine: reports: No Symptoms Reported Hematology: reports: No Symptoms Reported Psychiatric: reports: Judgement Intact, Mood/Affect Appropiate, Orientated x3 Patient History - Patient Medical History Hx Asthma: Yes Hx Chronic Obstructive Pulmonary Disease (COPD): No Hx Cardiac Disorders: No Hx Hypertension: No Hx Seizures: No Hx Diabetes: No Hx Gastrointestinal Disorders: No Hx Genitourinary Disorders: No Hx Sexually Transmitted Disorders: No Hx Renal Disease (ESRD): No Hx Depression: Yes Hx Suicide Attempt: No - Patient Surgical History Past Surgical History: No - PPD History Previous Implant?: Yes Documented Results: Negative w/proof Implanted On Prior [facility] Admission?: Yes Date: 08/30/18 Results: Neg PPD to be Administered?: No - Smoking Cessation Smoking history: Current every day smoker Have you smoked in the past 12 months: Yes Aproximately how many cigarettes per day: 20 Hx Chewing Tobacco Use: No Initiated information on smoking cessation: Yes 'Breaking Loose' booklet given: 03/16/19 - Substances abused Heroin Substance route: Injection Frequency: Daily Amount used: 1-2 BUNDLEs Age of first use: 19 Date of last use: 03/15/19 Alcohol Substance route: Oral Frequency: No use in 30 days Amount used: 8 MENDEZ 12OZ BOTTLES Age of first use: 13 Date of last use: 02/27/19 Cocaine Substance route: Injection Frequency: Daily Amount used: 4 BAGS Age of first use: 19 Date of last use: 03/15/19 Admission Physical Exam [facility] - Vital Signs Vital Signs: Vital Signs - 24 hr 03/16/19 08:35 Temperature 98.1 F Pulse Rate 78 Respiratory 20 Rate Blood Pressure 143/87 Screened but not Admitted - Documentation of Visit Screened but not Admitted: No Breathalyzer - Breathalyzer Breathalyzer: 0.005 Urine Drug Screen - Test Device Lot number: [id number] Expiration date: 10/01/20 - Control Is test valid?: Yes - Results Drug screen NEGATIVE: No Urine drug screen results: SALLY-Cocaine, FEN-Fentanyl, MOP-Opiates, MTD-Methadone , BZO-Benzodiazepines Inpatient Rehab Admission - Rehab Decision to Admit Inpatient rehab admission?: Yes - Initial Determination Are CD services needed?: Yes Free of communicable disease: Yes Not in need of hospitalization: Yes - Rehab Admission Criteria Previous failed treatment: Yes Poor recovery environment: Yes Comorbidities: Yes Lacks judgement: Yes Patient is meeting Inpatient Rehab admission criteria:: Yes
[2019-03-16] MEDS ORDERED: ACETAMINOPHEN 325 MG TABLET (FP) PO PRN (09:30)
[2019-03-16] MEDS ORDERED: MENTHOL/PHENOL 1 EACH UD MM PRN (09:30)
[2019-03-16] MEDS ORDERED: P-EPHED 60MG/TRIPROLIDI 2.5MG TABLET PO PRN (09:30)
[2019-03-16] MEDS ORDERED: MAGNESIUM CITRATE 300 ML BOTTLE PO PRN (09:30)
[2019-03-16] MEDS ORDERED: LOPERAMIDE HCL 2 MG CAPSULE PO PRN (09:30)
[2019-03-16] MEDS ORDERED: guaiFENesin 200 MG/10 ML 10 ML UNIT-DOSE CUPS PO PRN (09:30)
[2019-03-16] MEDS ORDERED: MAGNESIUM HYDROX 2400MG/30ML ORAL SUSPENSION 30 ML CUP PO PRN (09:30)
[2019-03-16] MEDS: PRENATAL VITAMINS W/ FOLIC ACID TABLET (FP) PO SCH (11:19)
[2019-03-16] MEDS: NICOTINE 14 MG/24 HOURS TOPICAL PATCH TD SCH (11:19)
[2019-03-16] MEDS: IBUPROFEN 400 MG TABLET (FP) PO PRN (11:22)
[2019-03-16] MEDS: METHADONE HCL 10 MG TABLET PO SCH (11:26)
[2019-03-16 12:08] LABS: HEMATOCRIT 38.1 % (35.4-49); HEMOGLOBIN 12.8 GM/dL (11.7-16.9); MCH 30.1 pg (25.7-33.7); MCHC 33.6 g/dl (32.0-35.9); MEAN CELL VOLUME 89.5 fl (80-96); MEAN PLT VOLUME 8.3 fl (7.5-11.1); PLATELET COUNT 331 K/MM3 (134-434); RBC 4.26 M/mm3 (4.00-5.60); RDW 12.9 % (11.9-15.9); WHITE BLOOD COUNT 9.7 K/mm3 (4.0-10.0)
[2019-03-16 12:25] LABS: BILIRUBIN,TOTAL 0.2 mg/dL (0.2-1); BLOOD UREA NITROGEN 14.8 mg/dL (7-18); CALCIUM 9.4 mg/dL (8.5-10.1); CREATININE 0.9 mg/dL (0.55-1.3); POTASSIUM 4.2 mmol/L (3.5-5.1); TOT PROT 8.1 g/dl (6.4-8.2)
--- NOTE | 2019-03-16 17:30 | CONSULT ---
[facility] Psychiatric Consult - Data Date of interview: 03/16/19 Admission source: [facility] Identifying data: Revisit to [facility] and direct admission to [address] for this 29 y/o male, mandated by parole department for rehabilitation treatment (versus incarceration) for VINOD issues (heroin, alcohol dependence) + management of co-morbid conditions : MDD, Anxiety Disorder and insomnia. Patient is single, a father of one, homeless, unemployed and currently deprived of financial assistance. Mr Galvez was released from group home on 07/15/18 after serving a 2 1/2 years sentence (charges not disclosed). Patient is known to [facility] (dropped out of that program in February 2019). Substance Abuse History: Discussed with the patient. Details in current [facility] report as follows : Smoking history: Current every day smoker. Have you smoked in the past 12 months: Yes. Aproximately how many cigarettes per day: 20. Hx Chewing Tobacco Use: No. Initiated information on smoking cessation: Yes. ' Breaking Loose' booklet given: 03/16/19. - Substances abused. Heroin. Substance route: Injection. Frequency: Daily. Amount used: 1-2 BUNDLEs. Age of first use: 19. Date of last use: 03/15/19. Alcohol. Substance route: Oral. Frequency: No use in 30 days. Amount used: 8 MENDEZ 12OZ BOTTLES. Age of first use: 13. Date of last use: 02/27/19. Cocaine. Substance route: Injection. Frequency: Daily. Amount used: 4 BAGS. Age of first use: 19. Date of last use: 03/15/19 Medical History: Medical pofile is remarkable for bronchial asthma and recent injury to left ankle (twisted joint three days ago, as per self-report). Patient is in a splint and the patient ambulates with a pair of crutches. Psychiatric History: Patient is known for an early onset of psychiatric disturbances (behavioral dyscontrol + emotional instability). No reported history of psychiatric hospitalizations (only CPEP visits at local hospitals). Mr Galvez states that he has been under the care of Dr Talley at [facility] until February 2019 (was maintained on a regimen of wellbutrin XR 300 mg/day + Seroquel 300 mg/hs). Doses have been optimized, reportedly, by provider at [facility]. Patient was treated under the diagnoses of MDD + Bipolar Disorder + Anxiety Disorder. He endorses chronic non-adherence to his medications ( pharmacist at [id number] reported to this writer editor, in today's telephone conversation ([phone]), that the patient's most recent pharmacy activity on file has been recorded on September 26/2019 (picked only script for bupropion XL 150 mg/day and ignored seroquel 100 mg/hs). Known history of one suicide attempt (self mutilation at age 15). Patient was on methadone maintenance (50 mg /day) at [facility] (until 02/2019). Physical/Sexual Abuse/Trauma History: Patient denies. Additional Comment: Urine drug screen results: SALLY-Cocaine, FEN-Fentanyl, MOP- Opiates, MTD-Methadone, BZO-Benzodiazepines. Noted. Mental Status Exam - Mental Status Exam Alert and Oriented to: Time, Place, Person Cognitive Function: Good Patient Appearance: Well Groomed (left ankle is stabilized in an orthopedic device) Mood: Anxious (mldly anxious), Hopeful Affect: Appropriate, Normal Range Patient Behavior: Fatigued, Appropriate, Cooperative Speech Pattern: Clear (able to communicate in fair wallisian), Appropriate Voice Loudness: Normal Thought Process: Intact, Goal Oriented Thought Disorder: Not Present Hallucinations: Denies Suicidal Ideation: Denies Homicidal Ideation: Denies Insight/Judgement: Poor Sleep: Fair Appetite: Good Gait/Station: Other (ambulates with a pair of crutches) Psychiatric Findings - Problem List ([place] 1, 2,3) (1) Alcohol use disorder Current Visit: Yes Status: Chronic (2) Opioid dependence on agonist therapy Current Visit: Yes Status: Chronic Comment: On MMTP at [facility]. Missed 1 week. (3) Cocaine dependence, uncomplicated Current Visit: Yes Status: Chronic (4) Nicotine dependence, uncomplicated Current Visit: Yes Status: Chronic Qualifiers: Nicotine product type: cigarettes Qualified Code(s): F17.210 - Nicotine dependence, cigarettes, uncomplicated (5) Substance induced mood disorder Current Visit: Yes Status: Chronic (6) History of depression Current Visit: Yes Status: Chronic (7) Insomnia Current Visit: Yes Status: Chronic (8) Non-compliance Current Visit: Yes Status: Chronic - Initial Treatment Plan Initial Treatment Plan: Psychoeducation. Sleep hygiene. Support. NA/AA meetings. Motivational counseling. Groups. Medications resumed as follows : wellbutrin XL 150 mg po daily + seroquel 100 mg po hs. Side effects/benefits are discussed with patient. Mr Galvez has expressed his agreement with this plan of care. He gave his informed consent (verbal) to . Observation.
--- NOTE | 2019-03-16 17:45 | CONSULT ---
[facility] Psychiatric Consult - Data Date of interview: 03/16/19
[2019-03-16] MEDS: QUEtiapine FUMARATE 100 MG TABLET (FP) PO SCH (21:42)
[2019-03-16] MEDS: MELATONIN 5 MG TABLETS PO PRN (21:42)
[2019-03-16] MEDS: THIAMINE HCL 100 MG TABLET (FP) PO SCH (21:42)
[2019-03-16] MEDS ORDERED: QUEtiapine FUMARATE 300 MG TABLET PO SCH (22:00)
[2019-03-17] MEDS ORDERED: METHADONE HCL 40 MG DISPERSABLE TABLET PO SCH (06:00)
[2019-03-17] MEDS: METHADONE HCL 10 MG TABLET PO SCH (06:18)
--- NOTE | 2019-03-17 09:51 | PN ---
[facility] Progress Note Note: PT was admitted to rehab yesterday. Pt is here "to change" his life and does not want to use drugs. Says he restarted methadone since being here- feels good. Goes to [facility] for MAT- Pt has no complaints today Pt is homeless. Pt would like to go to inpatient rehab. Family in [place] Pt is using crutches b/c has sprained ankle L side. Not taking medications- seroquel and wellbutrin.
[2019-03-17 10:19] LABS: URINE APPEARANCE CLOUDY; URINE BILIRUBIN NEGATIVE (NEGATIVE); URINE COLOR YELLOW; URINE GLUCOSE (UA) NEGATIVE (NEGATIVE); URINE KETONE NEGATIVE (NEGATIVE); URINE LEUK ESTERASE NEGATIVE (NEGATIVE); URINE NITRITE NEGATIVE (NEGATIVE); URINE PROTEIN NEGATIVE (NEGATIVE)
[2019-03-17] MEDS: NICOTINE 14 MG/24 HOURS TOPICAL PATCH TD SCH (10:56)
[2019-03-17] MEDS: PRENATAL VITAMINS W/ FOLIC ACID TABLET (FP) PO SCH (10:56)
[2019-03-17] MEDS: QUEtiapine FUMARATE 100 MG TABLET (FP) PO SCH (21:06)
[2019-03-17] MEDS: THIAMINE HCL 100 MG TABLET (FP) PO SCH (21:06)
[2019-03-17] MEDS: MELATONIN 5 MG TABLETS PO PRN (21:06)
[2019-03-18] MEDS ORDERED: METHADONE HCL 10 MG TABLET ONE (05:25)
[2019-03-18] MEDS ORDERED: METHADONE HCL 40 MG DISPERSABLE TABLET ONE (05:26)
[2019-03-18] MEDS ORDERED: METHADONE HCL 10 MG TABLET PO SCH (06:00)
[2019-03-18] MEDS: METHADONE 40 MG, METHADONE 10 MG PO SCH (06:13)
[2019-03-18] MEDS: NICOTINE 14 MG/24 HOURS TOPICAL PATCH TD SCH (10:51)
[2019-03-18] MEDS: PRENATAL VITAMINS W/ FOLIC ACID TABLET (FP) PO SCH (10:51)
[2019-03-18] MEDS: THIAMINE HCL 100 MG TABLET (FP) PO SCH (21:26)
[2019-03-18] MEDS: QUEtiapine FUMARATE 100 MG TABLET (FP) PO SCH (21:26)
[2019-03-18] MEDS: MELATONIN 5 MG TABLETS PO PRN (21:26)
[2019-03-19] MEDS ORDERED: METHADONE HCL 40 MG DISPERSABLE TABLET ONE (03:58)
[2019-03-19] MEDS ORDERED: METHADONE HCL 10 MG TABLET ONE (03:58)
[2019-03-19] MEDS: METHADONE 40 MG, METHADONE 10 MG PO SCH (06:00)
[2019-03-19] MEDS: NICOTINE 14 MG/24 HOURS TOPICAL PATCH TD SCH (10:19)
[2019-03-19] MEDS: PRENATAL VITAMINS W/ FOLIC ACID TABLET (FP) PO SCH (10:19)
[2019-03-19] MEDS: IBUPROFEN 400 MG TABLET (FP) PO PRN (10:19)
[2019-03-19] MEDS: THIAMINE HCL 100 MG TABLET (FP) PO SCH (21:07)
[2019-03-19] MEDS: MELATONIN 5 MG TABLETS PO PRN (21:08)
[2019-03-19] MEDS: QUEtiapine FUMARATE 100 MG TABLET (FP) PO SCH (21:08)
[2019-03-20] MEDS ORDERED: METHADONE HCL 40 MG DISPERSABLE TABLET ONE (05:33)
[2019-03-20] MEDS ORDERED: METHADONE HCL 10 MG TABLET ONE (05:33)
[2019-03-20] MEDS: METHADONE 40 MG, METHADONE 10 MG PO SCH (06:30)
[2019-03-20] MEDS: NICOTINE 14 MG/24 HOURS TOPICAL PATCH TD SCH (09:48)
[2019-03-20] MEDS: PRENATAL VITAMINS W/ FOLIC ACID TABLET (FP) PO SCH (09:48)
[2019-03-20] MEDS: MELATONIN 5 MG TABLETS PO PRN (21:22)
[2019-03-20] MEDS: QUEtiapine FUMARATE 100 MG TABLET (FP) PO SCH (21:22)
[2019-03-20] MEDS: THIAMINE HCL 100 MG TABLET (FP) PO SCH (21:22)
[2019-03-21] MEDS ORDERED: METHADONE HCL 40 MG DISPERSABLE TABLET ONE (05:31)
[2019-03-21] MEDS ORDERED: METHADONE HCL 10 MG TABLET ONE (05:31)
[2019-03-21] MEDS: METHADONE 40 MG, METHADONE 10 MG PO SCH (05:52)
[2019-03-21] MEDS: NICOTINE 14 MG/24 HOURS TOPICAL PATCH TD SCH (10:32)
[2019-03-21] MEDS: PRENATAL VITAMINS W/ FOLIC ACID TABLET (FP) PO SCH (10:32)
[2019-03-21] MEDS: QUEtiapine FUMARATE 100 MG TABLET (FP) PO SCH (21:12)
[2019-03-21] MEDS: IBUPROFEN 400 MG TABLET (FP) PO PRN (21:12)
[2019-03-21] MEDS: THIAMINE HCL 100 MG TABLET (FP) PO SCH (21:12)
[2019-03-21] MEDS: MELATONIN 5 MG TABLETS PO PRN (21:13)
[2019-03-22] MEDS ORDERED: METHADONE HCL 10 MG TABLET ONE (05:33)
[2019-03-22] MEDS ORDERED: METHADONE HCL 40 MG DISPERSABLE TABLET ONE (05:33)
[2019-03-22] MEDS: METHADONE 40 MG, METHADONE 10 MG PO SCH (05:55)
[2019-03-22] MEDS: NICOTINE 14 MG/24 HOURS TOPICAL PATCH TD SCH (09:52)
[2019-03-22] MEDS: PRENATAL VITAMINS W/ FOLIC ACID TABLET (FP) PO SCH (09:52)
[2019-03-22] MEDS: MELATONIN 5 MG TABLETS PO PRN (21:48)
[2019-03-22] MEDS: THIAMINE HCL 100 MG TABLET (FP) PO SCH (21:48)
[2019-03-22] MEDS: QUEtiapine FUMARATE 100 MG TABLET (FP) PO SCH (21:48)
[2019-03-23] MEDS ORDERED: METHADONE HCL 40 MG DISPERSABLE TABLET ONE (05:28)
[2019-03-23] MEDS ORDERED: METHADONE HCL 10 MG TABLET ONE (05:28)
[2019-03-23] MEDS ORDERED: METHADONE 40 MG, METHADONE 10 MG PO SCH (06:00)
[2019-03-23] MEDS: PRENATAL VITAMINS W/ FOLIC ACID TABLET (FP) PO SCH (10:30)
[2019-03-23] MEDS: NICOTINE 14 MG/24 HOURS TOPICAL PATCH TD SCH (10:30)
[2019-03-23] MEDS: QUEtiapine FUMARATE 100 MG TABLET (FP) PO SCH (21:06)
[2019-03-23] MEDS: THIAMINE HCL 100 MG TABLET (FP) PO SCH (21:06)
[2019-03-23] MEDS: MELATONIN 5 MG TABLETS PO PRN (21:06)
[2019-03-24] MEDS ORDERED: METHADONE HCL 10 MG TABLET ONE (08:48)
[2019-03-24] MEDS ORDERED: METHADONE HCL 40 MG DISPERSABLE TABLET ONE (08:49)
[2019-03-24] MEDS: PRENATAL VITAMINS W/ FOLIC ACID TABLET (FP) PO SCH (09:42)
[2019-03-24] MEDS: METHADONE 40 MG, METHADONE 10 MG PO SCH (09:43)
[2019-03-24] MEDS: NICOTINE 14 MG/24 HOURS TOPICAL PATCH TD SCH (09:43)
[2019-03-24] MEDS: THIAMINE HCL 100 MG TABLET (FP) PO SCH (21:33)
[2019-03-24] MEDS: QUEtiapine FUMARATE 100 MG TABLET (FP) PO SCH (21:33)
[2019-03-24] MEDS: MELATONIN 5 MG TABLETS PO PRN (21:33)
[2019-03-25] MEDS ORDERED: METHADONE HCL 10 MG TABLET ONE (09:25)
[2019-03-25] MEDS: PRENATAL VITAMINS W/ FOLIC ACID TABLET (FP) PO SCH (09:26)
[2019-03-25] MEDS: METHADONE 40 MG, METHADONE 10 MG PO SCH (09:26)
[2019-03-25] MEDS ORDERED: METHADONE HCL 40 MG DISPERSABLE TABLET ONE (09:26)
[2019-03-25] MEDS: NICOTINE 14 MG/24 HOURS TOPICAL PATCH TD SCH (09:26)
--- NOTE | 2019-03-25 13:49 | PN ---
[facility] Progress Note Note: patient requesting to see psychiatric service for insomnia. Told Nurse Tha that he was hearing voices, but then denied it when asked by this provider. Patient also denies wanting to hurt self or others.
[2019-03-25] MEDS: THIAMINE HCL 100 MG TABLET (FP) PO SCH (21:29)
[2019-03-25] MEDS: MELATONIN 5 MG TABLETS PO PRN (21:29)
[2019-03-25] MEDS: QUEtiapine FUMARATE 100 MG TABLET (FP) PO SCH (21:29)
[2019-03-26] MEDS: PRENATAL VITAMINS W/ FOLIC ACID TABLET (FP) PO SCH (09:36)
[2019-03-26] MEDS: NICOTINE 14 MG/24 HOURS TOPICAL PATCH TD SCH (09:36)
[2019-03-26] MEDS: METHADONE 40 MG, METHADONE 10 MG PO SCH (09:37)
[2019-03-26] MEDS ORDERED: METHADONE HCL 10 MG TABLET ONE (09:37)
[2019-03-26] MEDS ORDERED: METHADONE HCL 40 MG DISPERSABLE TABLET ONE (09:37)
[2019-03-26] MEDS: IBUPROFEN 400 MG TABLET (FP) PO PRN (11:00)
--- NOTE | 2019-03-26 14:24 | PN ---
[facility] Progress Note Note: Patient reports sleeping poorly despite taking Seroquel 100 mg/hs and Melatonin 5 mg/hs. He requests to have Seroquel dosage increased to 300 mg/hs which he brought with him and was entered in his home medication. Bottle of Seroquel 300 mg dated on 02/2019 present in patient's property. Will increase Seroquel dosage to 300 mg/hs
[2019-03-26] MEDS: QUEtiapine FUMARATE 300 MG TABLET PO SCH (21:47)
[2019-03-26] MEDS: THIAMINE HCL 100 MG TABLET (FP) PO SCH (21:47)
[2019-03-27] MEDS: PRENATAL VITAMINS W/ FOLIC ACID TABLET (FP) PO SCH (10:23)
[2019-03-27] MEDS: NICOTINE 14 MG/24 HOURS TOPICAL PATCH TD SCH (10:23)
[2019-03-27] MEDS ORDERED: METHADONE HCL 40 MG DISPERSABLE TABLET ONE (10:23)
[2019-03-27] MEDS: METHADONE 40 MG, METHADONE 10 MG PO SCH (10:23)
[2019-03-27] MEDS ORDERED: METHADONE HCL 10 MG TABLET ONE (10:23)
[2019-03-27] MEDS: IBUPROFEN 400 MG TABLET (FP) PO PRN (18:05)
[2019-03-27] MEDS: MELATONIN 5 MG TABLETS PO PRN (21:40)
[2019-03-27] MEDS: QUEtiapine FUMARATE 300 MG TABLET PO SCH (21:40)
[2019-03-27] MEDS: THIAMINE HCL 100 MG TABLET (FP) PO SCH (21:40)
[2019-03-28] MEDS ORDERED: METHADONE HCL 40 MG DISPERSABLE TABLET ONE (08:31)
[2019-03-28] MEDS ORDERED: METHADONE HCL 10 MG TABLET ONE (08:31)
[2019-03-28] MEDS: NICOTINE 14 MG/24 HOURS TOPICAL PATCH TD SCH (09:35)
[2019-03-28] MEDS: PRENATAL VITAMINS W/ FOLIC ACID TABLET (FP) PO SCH (09:35)
[2019-03-28] MEDS: METHADONE 40 MG, METHADONE 10 MG PO SCH (09:35)
[2019-03-28] MEDS: MAG HYDROX/AL HYDROX/SIMETH 30 ML UNIT-DOSE CUP PO PRN (11:44)
[2019-03-28] MEDS: MELATONIN 5 MG TABLETS PO PRN (21:12)
[2019-03-28] MEDS: THIAMINE HCL 100 MG TABLET (FP) PO SCH (21:12)
[2019-03-28] MEDS: QUEtiapine FUMARATE 300 MG TABLET PO SCH (21:12)
[2019-03-29] MEDS ORDERED: METHADONE HCL 10 MG TABLET ONE (08:24)
[2019-03-29] MEDS ORDERED: METHADONE HCL 40 MG DISPERSABLE TABLET ONE (08:24)
[2019-03-29] MEDS: METHADONE 40 MG, METHADONE 10 MG PO SCH (09:23)
[2019-03-29] MEDS: NICOTINE 14 MG/24 HOURS TOPICAL PATCH TD SCH (09:23)
[2019-03-29] MEDS: PRENATAL VITAMINS W/ FOLIC ACID TABLET (FP) PO SCH (09:23)
[2019-03-29] MEDS: QUEtiapine FUMARATE 300 MG TABLET PO SCH (21:34)
[2019-03-29] MEDS: THIAMINE HCL 100 MG TABLET (FP) PO SCH (21:34)
[2019-03-29] MEDS: MELATONIN 5 MG TABLETS PO PRN (21:34)
[2019-03-30] MEDS ORDERED: COLLOIDAL OATMEAL 1 BAR EACH TP PRN (09:22)
[2019-03-30] MEDS: NICOTINE 14 MG/24 HOURS TOPICAL PATCH TD SCH (09:59)
[2019-03-30] MEDS: PRENATAL VITAMINS W/ FOLIC ACID TABLET (FP) PO SCH (09:59)
[2019-03-30] MEDS ORDERED: METHADONE HCL 40 MG DISPERSABLE TABLET ONE (09:59)
[2019-03-30] MEDS: METHADONE 40 MG, METHADONE 10 MG PO SCH (09:59)
[2019-03-30] MEDS ORDERED: METHADONE HCL 10 MG TABLET ONE (09:59)
[2019-03-30] MEDS: MELATONIN 5 MG TABLETS PO PRN (21:41)
[2019-03-30] MEDS: THIAMINE HCL 100 MG TABLET (FP) PO SCH (21:41)
[2019-03-30] MEDS: QUEtiapine FUMARATE 300 MG TABLET PO SCH (21:41)
[2019-03-31] MEDS ORDERED: METHADONE HCL 10 MG TABLET ONE (09:52)
[2019-03-31] MEDS ORDERED: METHADONE HCL 40 MG DISPERSABLE TABLET ONE (09:53)
[2019-03-31] MEDS: NICOTINE 14 MG/24 HOURS TOPICAL PATCH TD SCH (09:53)
[2019-03-31] MEDS: PRENATAL VITAMINS W/ FOLIC ACID TABLET (FP) PO SCH (09:53)
[2019-03-31] MEDS: METHADONE 40 MG, METHADONE 10 MG PO SCH (09:53)
[2019-03-31] MEDS: MELATONIN 5 MG TABLETS PO PRN (21:08)
[2019-03-31] MEDS: THIAMINE HCL 100 MG TABLET (FP) PO SCH (21:08)
[2019-03-31] MEDS: QUEtiapine FUMARATE 300 MG TABLET PO SCH (21:08)
[2019-04-01] MEDS ORDERED: METHADONE HCL 10 MG TABLET ONE (09:39)
[2019-04-01] MEDS ORDERED: METHADONE HCL 40 MG DISPERSABLE TABLET ONE (09:40)
[2019-04-01] MEDS: PRENATAL VITAMINS W/ FOLIC ACID TABLET (FP) PO SCH (09:40)
[2019-04-01] MEDS: NICOTINE 14 MG/24 HOURS TOPICAL PATCH TD SCH (09:40)
[2019-04-01] MEDS: METHADONE 40 MG, METHADONE 10 MG PO SCH (09:40)
[2019-04-01] MEDS: MELATONIN 5 MG TABLETS PO PRN (21:30)
[2019-04-01] MEDS: QUEtiapine FUMARATE 300 MG TABLET PO SCH (21:30)
[2019-04-01] MEDS: THIAMINE HCL 100 MG TABLET (FP) PO SCH (21:30)
[2019-04-02] MEDS ORDERED: METHADONE HCL 40 MG DISPERSABLE TABLET ONE (09:03)
[2019-04-02] MEDS ORDERED: METHADONE HCL 10 MG TABLET ONE (09:03)
[2019-04-02] MEDS: PRENATAL VITAMINS W/ FOLIC ACID TABLET (FP) PO SCH (09:33)
[2019-04-02] MEDS: NICOTINE 14 MG/24 HOURS TOPICAL PATCH TD SCH (09:33)
[2019-04-02] MEDS: METHADONE 40 MG, METHADONE 10 MG PO SCH (09:34)
[2019-04-02] MEDS: THIAMINE HCL 100 MG TABLET (FP) PO SCH (21:10)
[2019-04-02] MEDS: QUEtiapine FUMARATE 300 MG TABLET PO SCH (21:10)
[2019-04-02] MEDS: MELATONIN 5 MG TABLETS PO PRN (21:10)
[2019-04-03] MEDS ORDERED: METHADONE HCL 10 MG TABLET ONE (10:08)
[2019-04-03] MEDS ORDERED: METHADONE HCL 40 MG DISPERSABLE TABLET ONE (10:08)
[2019-04-03] MEDS: PRENATAL VITAMINS W/ FOLIC ACID TABLET (FP) PO SCH (10:09)
[2019-04-03] MEDS: NICOTINE 14 MG/24 HOURS TOPICAL PATCH TD SCH (10:09)
[2019-04-03] MEDS: METHADONE 40 MG, METHADONE 10 MG PO SCH (10:09)
[2019-04-03] MEDS: QUEtiapine FUMARATE 300 MG TABLET PO SCH (21:29)
[2019-04-03] MEDS: MELATONIN 5 MG TABLETS PO PRN (21:29)
[2019-04-03] MEDS: THIAMINE HCL 100 MG TABLET (FP) PO SCH (21:29)
[2019-04-04] MEDS: METHADONE 40 MG, METHADONE 10 MG PO SCH (09:57)
[2019-04-04] MEDS ORDERED: METHADONE HCL 10 MG TABLET ONE (09:57)
[2019-04-04] MEDS: PRENATAL VITAMINS W/ FOLIC ACID TABLET (FP) PO SCH (09:57)
[2019-04-04] MEDS ORDERED: METHADONE HCL 40 MG DISPERSABLE TABLET ONE (09:57)
[2019-04-04] MEDS: NICOTINE 14 MG/24 HOURS TOPICAL PATCH TD SCH (09:57)
[2019-04-04] MEDS: THIAMINE HCL 100 MG TABLET (FP) PO SCH (21:14)
[2019-04-04] MEDS: MELATONIN 5 MG TABLETS PO PRN (21:15)
[2019-04-04] MEDS: QUEtiapine FUMARATE 300 MG TABLET PO SCH (21:15)
[2019-04-05] MEDS ORDERED: METHADONE HCL 40 MG DISPERSABLE TABLET ONE (09:57)
[2019-04-05] MEDS: NICOTINE 14 MG/24 HOURS TOPICAL PATCH TD SCH (09:57)
[2019-04-05] MEDS ORDERED: METHADONE HCL 10 MG TABLET ONE (09:57)
[2019-04-05] MEDS: PRENATAL VITAMINS W/ FOLIC ACID TABLET (FP) PO SCH (09:58)
[2019-04-05] MEDS: METHADONE 40 MG, METHADONE 10 MG PO SCH (09:58)
[2019-04-05] MEDS: MELATONIN 5 MG TABLETS PO PRN (21:38)
[2019-04-05] MEDS: QUEtiapine FUMARATE 300 MG TABLET PO SCH (21:38)
[2019-04-05] MEDS: THIAMINE HCL 100 MG TABLET (FP) PO SCH (21:38)
[2019-04-06] MEDS ORDERED: METHADONE HCL 40 MG DISPERSABLE TABLET ONE (09:11)
[2019-04-06] MEDS ORDERED: METHADONE HCL 10 MG TABLET ONE (09:11)
[2019-04-06] MEDS: PRENATAL VITAMINS W/ FOLIC ACID TABLET (FP) PO SCH (09:54)
[2019-04-06] MEDS: NICOTINE 14 MG/24 HOURS TOPICAL PATCH TD SCH (09:54)
[2019-04-06] MEDS: METHADONE 40 MG, METHADONE 10 MG PO SCH (09:54)
[2019-04-06] MEDS: QUEtiapine FUMARATE 300 MG TABLET PO SCH (21:23)
[2019-04-06] MEDS: MELATONIN 5 MG TABLETS PO PRN (21:23)
[2019-04-06] MEDS: THIAMINE HCL 100 MG TABLET (FP) PO SCH (21:23)
[2019-04-07] MEDS: METHADONE 40 MG, METHADONE 10 MG PO SCH (09:54)
[2019-04-07] MEDS: NICOTINE 14 MG/24 HOURS TOPICAL PATCH TD SCH (09:54)
[2019-04-07] MEDS ORDERED: METHADONE HCL 10 MG TABLET ONE (09:54)
[2019-04-07] MEDS: PRENATAL VITAMINS W/ FOLIC ACID TABLET (FP) PO SCH (09:54)
[2019-04-07] MEDS ORDERED: METHADONE HCL 40 MG DISPERSABLE TABLET ONE (09:54)
--- NOTE | 2019-04-07 11:44 | PN ---
[facility] Progress Note (SOAP) Subjective: Patient c/o lower extremity pain and swelling of left leg<PMHx of Left ankle sprain Objective: General: no apparent distress MSK: full weigh bearing, Extremities: L ankle w/ non-pitting edema, Right ankle- no edema, color equal bilaterally, +pulses-bilaterally 04/07/19 11:45 Assessment: L ankle edema r/t sprain 04/07/19 11:46 Plan: Encouraged elevation of extremities Compression stockings ordered
[2019-04-07] MEDS: THIAMINE HCL 100 MG TABLET (FP) PO SCH (21:27)
[2019-04-07] MEDS: MELATONIN 5 MG TABLETS PO PRN (21:28)
[2019-04-07] MEDS: QUEtiapine FUMARATE 300 MG TABLET PO SCH (21:28)
[2019-04-08] MEDS ORDERED: METHADONE HCL 10 MG TABLET ONE (09:28)
[2019-04-08] MEDS ORDERED: METHADONE HCL 40 MG DISPERSABLE TABLET ONE (09:28)
[2019-04-08] MEDS: METHADONE 40 MG, METHADONE 10 MG PO SCH (09:29)
[2019-04-08] MEDS: NICOTINE 14 MG/24 HOURS TOPICAL PATCH TD SCH (09:29)
[2019-04-08] MEDS: PRENATAL VITAMINS W/ FOLIC ACID TABLET (FP) PO SCH (09:29)
[2019-04-08] MEDS: MAG HYDROX/AL HYDROX/SIMETH 30 ML UNIT-DOSE CUP PO PRN (11:13)
[2019-04-08] MEDS: MELATONIN 5 MG TABLETS PO PRN (21:07)
[2019-04-08] MEDS: THIAMINE HCL 100 MG TABLET (FP) PO SCH (21:07)
[2019-04-08] MEDS: QUEtiapine FUMARATE 300 MG TABLET PO SCH (21:07)
[2019-04-09] MEDS ORDERED: METHADONE HCL 40 MG DISPERSABLE TABLET ONE (10:20)
[2019-04-09] MEDS ORDERED: METHADONE HCL 10 MG TABLET ONE (10:20)
[2019-04-09] MEDS: PRENATAL VITAMINS W/ FOLIC ACID TABLET (FP) PO SCH (10:21)
[2019-04-09] MEDS: METHADONE 40 MG, METHADONE 10 MG PO SCH (10:21)
[2019-04-09] MEDS: NICOTINE 14 MG/24 HOURS TOPICAL PATCH TD SCH (10:21)
[2019-04-09] MEDS: QUEtiapine FUMARATE 300 MG TABLET PO SCH (21:35)
[2019-04-09] MEDS: MELATONIN 5 MG TABLETS PO PRN (21:35)
[2019-04-09] MEDS: THIAMINE HCL 100 MG TABLET (FP) PO SCH (21:35)
[2019-04-10] MEDS ORDERED: METHADONE HCL 40 MG DISPERSABLE TABLET ONE (09:42)
[2019-04-10] MEDS ORDERED: METHADONE HCL 10 MG TABLET ONE (09:42)
[2019-04-10] MEDS: METHADONE 40 MG, METHADONE 10 MG PO SCH (09:42)
[2019-04-10] MEDS: NICOTINE 14 MG/24 HOURS TOPICAL PATCH TD SCH (09:43)
[2019-04-10] MEDS: PRENATAL VITAMINS W/ FOLIC ACID TABLET (FP) PO SCH (09:43)
[2019-04-10] MEDS: QUEtiapine FUMARATE 300 MG TABLET PO SCH (21:16)
[2019-04-10] MEDS: MELATONIN 5 MG TABLETS PO PRN (21:16)
[2019-04-10] MEDS: THIAMINE HCL 100 MG TABLET (FP) PO SCH (21:16)
[2019-04-11] MEDS ORDERED: METHADONE HCL 10 MG TABLET ONE (08:46)
[2019-04-11] MEDS ORDERED: METHADONE HCL 40 MG DISPERSABLE TABLET ONE (08:47)
[2019-04-11] MEDS: METHADONE 40 MG, METHADONE 10 MG PO SCH (09:33)
[2019-04-11] MEDS: NICOTINE 14 MG/24 HOURS TOPICAL PATCH TD SCH (09:33)
[2019-04-11] MEDS: PRENATAL VITAMINS W/ FOLIC ACID TABLET (FP) PO SCH (09:34)
[2019-04-11] MEDS: QUEtiapine FUMARATE 300 MG TABLET PO SCH (21:26)
[2019-04-11] MEDS: THIAMINE HCL 100 MG TABLET (FP) PO SCH (21:26)
[2019-04-11] MEDS: MELATONIN 5 MG TABLETS PO PRN (21:26)
[2019-04-12] MEDS ORDERED: METHADONE HCL 10 MG TABLET ONE (08:24)
[2019-04-12] MEDS ORDERED: METHADONE HCL 40 MG DISPERSABLE TABLET ONE (08:24)
[2019-04-12] MEDS: METHADONE 40 MG, METHADONE 10 MG PO SCH (09:59)
[2019-04-12] MEDS: PRENATAL VITAMINS W/ FOLIC ACID TABLET (FP) PO SCH (09:59)
[2019-04-12] MEDS: NICOTINE 14 MG/24 HOURS TOPICAL PATCH TD SCH (09:59)
[2019-04-12] MEDS: MAG HYDROX/AL HYDROX/SIMETH 30 ML UNIT-DOSE CUP PO PRN (11:38)
[2019-04-12] MEDS: IBUPROFEN 400 MG TABLET (FP) PO PRN (12:41)
--- NOTE | 2019-04-12 13:15 | PN ---
[facility] Progress Note Note: Patient is scheduled for discharge tomorrow. Scripts for 30 days supply of medications(Wellbutin XL 150 mg/day, Seroquel 300 mg/hs) will be electronically transmitted to [facility] at [address] [place] [id number]
[2019-04-12] MEDS ORDERED: METHADONE 40 MG, METHADONE 10 MG PO SCH (19:33)
[2019-04-12] MEDS: MELATONIN 5 MG TABLETS PO PRN (21:10)
[2019-04-12] MEDS: THIAMINE HCL 100 MG TABLET (FP) PO SCH (21:10)
[2019-04-12] MEDS: QUEtiapine FUMARATE 300 MG TABLET PO SCH (21:10)
[2019-04-13 06:46] VITALS: BP 122/67; PULSE 84; TEMP 97.9
[2019-04-13] MEDS ORDERED: METHADONE HCL 40 MG DISPERSABLE TABLET ONE (08:45)
[2019-04-13] MEDS ORDERED: METHADONE HCL 10 MG TABLET ONE (08:45)
--- NOTE | 2019-04-13 08:59 | DS ---
[facility] Rehab Discharge Summary - [facility] Rehab Discharge Summary Admission Date: 03/16/19 Discharge Date: 04/13/19 - History Present History: Alcohol dependence, Cocaine dependence - Discharge Physical Exam Vital Signs: Vital Signs Temperature 97.9 F 04/13/19 06:45 Pulse Rate 84 04/13/19 06:45 Respiratory Rate 18 04/13/19 06:45 Blood Pressure 122/67 04/13/19 06:45 O2 Sat by Pulse Oximetry (%) Laboratory Tests 03/16/19 03/16/19 03/16/19 08:50 08:50 08:50 WBC 9.7 RBC 4.26 Hgb 12.8 Hct 38.1 MCV 89.5 MCH 30.1 MCHC 33.6 RDW 12.9 Plt Count 331 D MPV 8.3 Sodium 137 Potassium 4.2 Chloride 102 Carbon Dioxide 31 Anion Gap 3 L BUN 14.8 Creatinine 0.9 Est GFR (CKD-EPI)AfAm 133.30 Est GFR (CKD-EPI)NonAf 115.01 Random Glucose 99 Calcium 9.4 Total Bilirubin 0.2 AST 23 ALT 26 Alkaline Phosphatase 75 Total Protein 8.1 Albumin 4.0 Urine Color Urine Appearance Urine pH Ur Specific Lynch Urine Protein Urine Glucose (UA) Urine Ketones Urine Blood Urine Nitrite Urine Bilirubin Urine Urobilinogen Ur Leukocyte Esterase RPR Titer Nonreactive HIV 1&2 Antibody Screen HIV P24 Antigen 03/16/19 03/17/19 10:00 07:20 WBC RBC Hgb Hct MCV MCH MCHC RDW Plt Count MPV Sodium Potassium Chloride Carbon Dioxide Anion Gap BUN Creatinine Est GFR (CKD-EPI)AfAm Est GFR (CKD-EPI)NonAf Random Glucose Calcium Total Bilirubin AST ALT Alkaline Phosphatase Total Protein Albumin Urine Color Yellow Urine Appearance Cloudy Urine pH 7.0 Ur Specific Lynch 1.025 Urine Protein Negative Urine Glucose (UA) Negative Urine Ketones Negative Urine Blood Negative Urine Nitrite Negative Urine Bilirubin Negative Urine Urobilinogen 1.0 Ur Leukocyte Esterase Negative RPR Titer HIV 1&2 Antibody Screen Negative HIV P24 Antigen Negative ROS: denies alcohol cravings, chest pain, sob and dizziness PE alert and oriented x 3 skin warm and dry car s1s2 resp cta bl ext amb with cane, no visible swelling denies si/hi a/p etoh/cocaine dependence medically stable for d/c - Treatment Discharge Condition: Discharge condition good Hospital Course: Patient attended group meetings, evaluated by psych team and attended 1:1 sessions with counselor. Aftercare arranged for terminal makeup operator at [facility] due to parole mandate. Patient encouraged to attend group meetings to prevent reoccurrence and to follow up with pcp as recommended. - Medication Discharge Medications: Ambulatory Orders Bupropion HCl [Wellbutrin Xl -] 150 mg PO BID 02/28/19 Quetiapine Fumarate [Seroquel] 300 mg PO HS 02/28/19 - Medication-Assisted Treatment (MAT) Medication-Assisted Treatment (MAT): Yes MAT Follow-up Referral: [facility] - Discharge Instructions Diet, activity, other medical instructions: Diet: reg as rudy Activity: as rudy Other medical instructions: f/u with pcp as recommended - Follow-up Referral Minutes to complete discharge: 35 - AMA Did Patient Leave Against Medical Advice: No
[2019-04-13] MEDS: PRENATAL VITAMINS W/ FOLIC ACID TABLET (FP) PO SCH (09:03)
[2019-04-13] MEDS: NICOTINE 14 MG/24 HOURS TOPICAL PATCH TD SCH (09:04)
== END 2019-04-13 09:26 | disposition home or self-care (01) | DRG 772 ==
LOC: YASAS 08:09 → Y3W 10:00
PROVIDERS: ADMIT Neuromusculoskeletal Medicine & OMM; ATTEND Neuromusculoskeletal Medicine & OMM
PROC: HZ42ZZZ Group Counseling for Substance Abuse Treatment, Cognitive-Behavioral (ICD-10-PCS; principal; 2019-03-16)
DX: F10.20 Alcohol dependence, uncomplicated (principal); F11.20 Opioid dependence, uncomplicated; F14.20 Cocaine dependence, uncomplicated; F17.210 Nicotine dependence, cigarettes, uncomplicated; F19.24 Other psychoactive substance dependence with psychoactive substance-induced mood disorder; F31.9 Bipolar disorder, unspecified; G47.00 Insomnia, unspecified; Z87.09 Personal history of other diseases of the respiratory system; S93.492D Sprain of other ligament of left ankle, subsequent encounter; X50.1XXD Overexertion from prolonged static or awkward postures, subsequent encounter; Z99.89 Dependence on other enabling machines and devices; Z91.19 Patient's noncompliance with other medical treatment and regimen; Z91.5 Personal history of self-harm
CPT/HCPCS: 36415; 73610-TC-LT-FY; 80053; 81003; 85027; 86593; 87389; 99283-25

== ENCOUNTER 2021-08-01 12:04 | Inpatient (IN) | payer OTHER ==
[2021-08-01 12:51] VITALS: BMI 23.4
[2021-08-01] MEDS ORDERED: LOPERAMIDE HCL 2 MG CAPSULE PO PRN (13:13)
[2021-08-01] MEDS ORDERED: methaDONE HCL 10 MG TABLET (FOR DETOX USE ONLY) PO ONE (13:13)
[2021-08-01] MEDS ORDERED: NICOTINE 10 MG CARTRIDGE (INHALER) IH PRN (13:13)
[2021-08-01] MEDS ORDERED: ONDANSETRON *ODT* 4 MG TABLET SL PRN (13:13)
[2021-08-01] MEDS ORDERED: chlordiazePOXIDE HCL 25 MG CAPSULE PO PRN (13:13)
[2021-08-01] MEDS ORDERED: DICYCLOMINE HCL 10 MG CAPSULE PO PRN (13:13)
[2021-08-01] MEDS ORDERED: ACETAMINOPHEN 325 MG TABLET (FP) PO PRN ×2 (13:13)
[2021-08-01] MEDS ORDERED: MAGNESIUM HYDROX 2400MG/30ML ORAL SUSPENSION 30 ML CUP PO PRN (13:13)
[2021-08-01] MEDS ORDERED: BENZOCAINE/MENTHOL (CHLORASEPTIC ) LOZENGE MM PRN (13:13)
[2021-08-01] MEDS ORDERED: BISMUTH SUBSALICYLATE 262 MG/15 ML BTL PO PRN (13:13)
[2021-08-01] MEDS ORDERED: MAGNESIUM CITRATE 300 ML BOTTLE PO PRN (13:13)
[2021-08-01] MEDS ORDERED: IBUPROFEN 400 MG TABLET (FP) PO PRN (13:13)
[2021-08-01] MEDS ORDERED: cloNIDine HCL 0.1 MG TABLET PO PRN (13:13)
[2021-08-01] MEDS ORDERED: METHOCARBAMOL 500 MG TABLET PO PRN (13:13)
[2021-08-01] MEDS ORDERED: MAG HYDROX/AL HYDROX/SIMETH 30 ML UNIT-DOSE CUP PO PRN (13:13)
[2021-08-01] MEDS: PRENATAL VITAMINS W/ FOLIC ACID TABLET (FP) PO SCH (15:15)
[2021-08-01] MEDS: NICOTINE 14 MG/24 HOURS TOPICAL PATCH TD SCH (15:16)
[2021-08-01] MEDS: hydrOXYzine PAMOATE 25 MG CAPSULE (FP) PO SCH ×3 (15:16→23:04)
[2021-08-01 17:29] LABS: HEMATOCRIT 37.9 % (35.4-49); HEMOGLOBIN 12.7 GM/dL (11.7-16.9); MCH 27.3 pg (25.7-33.7); MCHC 33.4 g/dl (32.0-35.9); MEAN CELL VOLUME 81.8 fl (80-96); MEAN PLT VOLUME 7.9 fl (7.5-11.1); PLATELET COUNT 318 10^3/uL (134-434); RBC 4.64 M/mm3 (4.00-5.60); RDW 13.8 % (11.9-15.9); WHITE BLOOD COUNT 7.9 K/mm3 (4.0-10.0)
[2021-08-01 17:32] LABS: ALBUMIN 3.6 g/dl (3.4-5.0); BLOOD UREA NITROGEN 22.6 mg/dL (7-18); CALCIUM 9.2 mg/dL (8.5-10.1)
[2021-08-01 17:35] LABS: BILIRUBIN,TOTAL 0.8 mg/dL (0.2-1); CREATININE 0.8 mg/dL (0.55-1.3)
[2021-08-01 17:36] LABS: TOT PROT 8.5 g/dl (6.4-8.2)
[2021-08-01] MEDS: chlordiazePOXIDE HCL 25 MG CAPSULE PO SCH ×2 (17:51→23:04)
[2021-08-01] MEDS: THIAMINE HCL 100 MG TABLET (FP) PO SCH (23:04)
[2021-08-01] MEDS: MELATONIN 5 MG TABLETS PO SCH (23:04)
[2021-08-02] MEDS: chlordiazePOXIDE HCL 25 MG CAPSULE PO SCH ×4 (05:33→22:36)
[2021-08-02] MEDS: hydrOXYzine PAMOATE 25 MG CAPSULE (FP) PO SCH ×5 (05:33→22:36)
[2021-08-02] MEDS ORDERED: methaDONE HCL 10 MG TABLET (FOR DETOX USE ONLY) ONE (08:54)
[2021-08-02] MEDS: PRENATAL VITAMINS W/ FOLIC ACID TABLET (FP) PO SCH (10:21)
[2021-08-02] MEDS: NICOTINE 14 MG/24 HOURS TOPICAL PATCH TD SCH (10:23)
[2021-08-02] MEDS: MELATONIN 5 MG TABLETS PO SCH (22:36)
[2021-08-02] MEDS: THIAMINE HCL 100 MG TABLET (FP) PO SCH (22:36)
[2021-08-03] MEDS: hydrOXYzine PAMOATE 25 MG CAPSULE (FP) PO SCH ×2 (07:40→10:20)
[2021-08-03] MEDS: chlordiazePOXIDE HCL 25 MG CAPSULE PO SCH ×2 (07:40→10:21)
[2021-08-03 09:03] VITALS: BP 150/88; PULSE 76; TEMP 98.2
[2021-08-03] MEDS ORDERED: methaDONE HCL 10 MG TABLET (FOR DETOX USE ONLY) PO ONE (10:00)
[2021-08-03] MEDS: PRENATAL VITAMINS W/ FOLIC ACID TABLET (FP) PO SCH (10:20)
[2021-08-03] MEDS: NICOTINE 14 MG/24 HOURS TOPICAL PATCH TD SCH (10:21)
[2021-08-03 11:27] LABS: BLOOD UREA NITROGEN 16.4 mg/dL (7-18)
[2021-08-04] MEDS ORDERED: chlordiazePOXIDE HCL 10 MG CAPSULE PO PRN
[2021-08-04] MEDS ORDERED: chlordiazePOXIDE HCL 10 MG CAPSULE PO SCH (05:00)
[2021-08-05] MEDS ORDERED: chlordiazePOXIDE HCL 10 MG CAPSULE PO SCH (05:00)
[2021-08-05] MEDS ORDERED: methaDONE HCL 10 MG TABLET (FOR DETOX USE ONLY) PO ONE (10:00)
[2021-08-06] MEDS ORDERED: chlordiazePOXIDE HCL 10 MG CAPSULE PO ONE (05:00)
== END 2021-08-03 10:44 | disposition left against medical advice (07) | DRG 770 ==
LOC: YASAS 12:04 → Y3N 13:58
PROVIDERS: ADMIT Allergy & Immunology; ATTEND Surgery
PROC: HZ2ZZZZ Detoxification Services for Substance Abuse Treatment (ICD-10-PCS; principal; 2021-08-01)
DX: F11.23 Opioid dependence with withdrawal (principal); F10.230 Alcohol dependence with withdrawal, uncomplicated; F14.20 Cocaine dependence, uncomplicated; F17.210 Nicotine dependence, cigarettes, uncomplicated; F32.A Depression, unspecified; J45.909 Unspecified asthma, uncomplicated; R76.11 Nonspecific reaction to tuberculin skin test without active tuberculosis
CPT/HCPCS: 36415; 80053; 82947; 83036; 84520; 85027; 86780; C9803-CS; U0003; U0005

== ENCOUNTER 2021-09-05 15:12 | Inpatient (IN) | payer OTHER ==
[2021-09-05 17:24] VITALS: BMI 21.1
[2021-09-05] MEDS ORDERED: NICOTINE 10 MG CARTRIDGE (INHALER) IH PRN (19:16)
[2021-09-05] MEDS ORDERED: NALOXONE HCL (KLOXXADO) 8 MG SPRAY NS PRN (19:16)
[2021-09-05] MEDS ORDERED: LOPERAMIDE HCL 2 MG CAPSULE PO PRN (19:16)
[2021-09-05] MEDS ORDERED: guaiFENesin 200 MG/10 ML 10 ML UNIT-DOSE CUPS PO PRN (19:16)
[2021-09-05] MEDS ORDERED: IBUPROFEN 400 MG TABLET (FP) PO PRN (19:16)
[2021-09-05] MEDS ORDERED: MAGNESIUM HYDROX 2400MG/30ML ORAL SUSPENSION 30 ML CUP PO PRN (19:16)
[2021-09-05] MEDS ORDERED: ACETAMINOPHEN 325 MG TABLET (FP) PO PRN (19:16)
[2021-09-05] MEDS ORDERED: MAG HYDROX/AL HYDROX/SIMETH 30 ML UNIT-DOSE CUP PO PRN (19:16)
[2021-09-05] MEDS ORDERED: P-EPHED 60MG/TRIPROLIDI 2.5MG TABLET PO PRN (19:16)
[2021-09-05] MEDS ORDERED: MAGNESIUM CITRATE 300 ML BOTTLE PO PRN (19:16)
[2021-09-06] MEDS: THIAMINE HCL 100 MG TABLET (FP) PO SCH ×2 (00:45→21:14)
[2021-09-06] MEDS: hydrOXYzine PAMOATE 25 MG CAPSULE (FP) PO SCH ×6 (00:45→21:14)
[2021-09-06] MEDS: MELATONIN 5 MG TABLETS PO SCH ×2 (00:46→21:14)
[2021-09-06 03:04] LABS: PH,URINE 6.5 (5.0-8.0); URINE APPEARANCE CLEAR; URINE BILIRUBIN NEGATIVE (NEGATIVE); URINE COLOR YELLOW; URINE GLUCOSE (UA) NEGATIVE (NEGATIVE); URINE KETONE NEGATIVE (NEGATIVE); URINE LEUK ESTERASE NEGATIVE (NEGATIVE); URINE NITRITE NEGATIVE (NEGATIVE); URINE PROTEIN NEGATIVE (NEGATIVE)
[2021-09-06] MEDS ORDERED: methaDONE HCL 10 MG TABLET PO ONE (09:55)
[2021-09-06] MEDS ORDERED: ALBUTEROL SO4 HFA INHALER IH PRN (09:57)
[2021-09-06] MEDS ORDERED: methaDONE HCL 10 MG TABLET ONE (10:13)
[2021-09-06] MEDS ORDERED: methaDONE HCL 40 MG DISPERSABLE TABLET ONE (10:13)
[2021-09-06] MEDS ORDERED: methaDONE 80 MG, methaDONE 10 MG PO ONE (10:15)
[2021-09-06] MEDS: PRENATAL VITAMINS W/ FOLIC ACID TABLET (FP) PO SCH (10:34)
[2021-09-06] MEDS: NICOTINE 7 MG/24 HOURS TOPICAL PATCH TD SCH (10:34)
[2021-09-06 11:41] LABS: HEMATOCRIT 35.6 % (35.4-49); HEMOGLOBIN 11.5 GM/dL (11.7-16.9); MCHC 32.4 g/dl (32.0-35.9); MEAN CELL VOLUME 83.4 fl (80-96); MEAN PLT VOLUME 8.4 fl (7.5-11.1); PLATELET COUNT 235 10^3/uL (134-434); RBC 4.27 M/mm3 (4.00-5.60); RDW 14.5 % (11.9-15.9); WHITE BLOOD COUNT 6.5 K/mm3 (4.0-10.0)
[2021-09-06 12:41] LABS: BILIRUBIN,TOTAL 0.2 mg/dL (0.2-1); TOT PROT 7.4 g/dl (6.4-8.2)
[2021-09-06 12:47] LABS: CALCIUM 8.9 mg/dL (8.5-10.1)
[2021-09-06 12:48] LABS: ALBUMIN 3.2 g/dl (3.4-5.0); BLOOD UREA NITROGEN 14.6 mg/dL (7-18)
[2021-09-06 12:51] LABS: CREATININE 0.9 mg/dL (0.55-1.3)
[2021-09-06 14:20] LABS: SYPHILIS W/ RPR CONF NON-REACTIVE (NONREACTIVE)
[2021-09-07] MEDS ORDERED: methaDONE HCL 10 MG TABLET ONE (04:00)
[2021-09-07] MEDS ORDERED: methaDONE HCL 40 MG DISPERSABLE TABLET ONE (04:00)
[2021-09-07] MEDS: methaDONE 80 MG, methaDONE 10 MG PO SCH (05:58)
[2021-09-07] MEDS: hydrOXYzine PAMOATE 25 MG CAPSULE (FP) PO SCH ×2 (05:59→10:11)
[2021-09-07] MEDS ORDERED: methaDONE HCL 10 MG TABLET PO SCH (06:00)
[2021-09-07] MEDS: NICOTINE 7 MG/24 HOURS TOPICAL PATCH TD SCH (10:11)
[2021-09-07] MEDS: PRENATAL VITAMINS W/ FOLIC ACID TABLET (FP) PO SCH (10:11)
[2021-09-07] MEDS: hydrOXYzine PAMOATE 25 MG CAPSULE (FP) PO PRN (21:01)
[2021-09-07] MEDS: MELATONIN 5 MG TABLETS PO SCH (21:01)
[2021-09-07] MEDS: THIAMINE HCL 100 MG TABLET (FP) PO SCH (21:01)
[2021-09-08] MEDS ORDERED: methaDONE HCL 10 MG TABLET ONE (03:47)
[2021-09-08] MEDS ORDERED: methaDONE HCL 40 MG DISPERSABLE TABLET ONE (03:48)
[2021-09-08] MEDS: methaDONE 80 MG, methaDONE 10 MG PO SCH (06:23)
[2021-09-08] MEDS: PRENATAL VITAMINS W/ FOLIC ACID TABLET (FP) PO SCH (10:22)
[2021-09-08] MEDS: NICOTINE 7 MG/24 HOURS TOPICAL PATCH TD SCH (10:22)
[2021-09-08] MEDS: hydrOXYzine PAMOATE 25 MG CAPSULE (FP) PO PRN (21:28)
[2021-09-08] MEDS: THIAMINE HCL 100 MG TABLET (FP) PO SCH (21:28)
[2021-09-08] MEDS: MELATONIN 5 MG TABLETS PO SCH (21:28)
[2021-09-09] MEDS ORDERED: methaDONE HCL 40 MG DISPERSABLE TABLET ONE (03:38)
[2021-09-09] MEDS ORDERED: methaDONE HCL 10 MG TABLET ONE (03:38)
[2021-09-09] MEDS: methaDONE 80 MG, methaDONE 10 MG PO SCH (06:03)
[2021-09-09 06:41] VITALS: BP 125/80; PULSE 92; TEMP 96.9
[2021-09-09] MEDS: NICOTINE 7 MG/24 HOURS TOPICAL PATCH TD SCH (09:35)
[2021-09-09] MEDS: PRENATAL VITAMINS W/ FOLIC ACID TABLET (FP) PO SCH (09:36)
== END 2021-09-09 15:30 | disposition home or self-care (01) | DRG 772 ==
LOC: YASAS 15:12 → Y5N 19:33
PROVIDERS: ADMIT Allergy & Immunology; ATTEND Psychiatry & Neurology Pain Medicine
PROC: HZ42ZZZ Group Counseling for Substance Abuse Treatment, Cognitive-Behavioral (ICD-10-PCS; principal; 2021-09-05)
DX: F11.20 Opioid dependence, uncomplicated (principal); F14.20 Cocaine dependence, uncomplicated; F17.210 Nicotine dependence, cigarettes, uncomplicated; F19.24 Other psychoactive substance dependence with psychoactive substance-induced mood disorder; J45.909 Unspecified asthma, uncomplicated; R73.9 Hyperglycemia, unspecified
CPT/HCPCS: 36415; 71046-TC-FY; 80053; 81003; 82962; 85027; 86780; 86803; 87522; C9803-CS; U0003; U0005